=== PATIENT | male | born 1935 | race Caucasian/White ===

== ENCOUNTER 2020-06-06 06:44 | Day surgery (SDC) | payer OTHER, BC ==
[2020-06-02 12:29] LABS: Absolute Lymphocytes (CBC) 1.2 K/uL (0.7-4.9); Basophils % 0.7 % (0-1.3); Hematocrit 41.5 % (39.6-49.0); Lymphocytes % 15.4 % (15.3-44.8); MPV 8.3 fL (7.6-11.3); Potassium 4.6 mmol/L (3.5-5.1); RBC Red Blood Cell Count 4.77 M/uL (4.33-5.43)
[2020-06-02 12:33] LABS: Protime INR 0.96
--- OUTSIDE RECORDS SUMMARY | 2020-06-06 06:51 | XMS REPORT | Continuity of Care Document ---
:1935 Author Organization [employer] [facility] Care Team Providers Name Role Phone [employer] Unavailable Un available Problems Problem Status Onset Classification Date Comments Sourc e Date Reported BODY MASS INDEX Active Condition MH 36.0-36.9, ADULT 014 5 Med ical Group Body mass index 30+ - Resolved Problem Data obesity (finding) 014 8 migrated Me dical from [employer] on 04/22/15. INFECTION, LOCAL Inactive Condition SKIN/SUBCUTANEOUS TISSUE 014 5 Medical NEC Group SPECIAL SCREENING Active Condition MALIGNANT NEOPLASM OF 013 5 Medical PROSTATE Group SCREENING, COLON CANCER Active Condition 013 5 Medical Group PHARYNGITIS Inactive Condition 012 5 Medical Group NEED PROPHYLACTIC Active Condition VACCINATION&INOCULATION 012 5 Medical FLU Group Pharyngitis (disorder) Resolved Problem Da ta migrated from [employer] on 06/10/15. MH 012 8 Data migrated from [employer] on 06/09/15. Medical Group LONG-TERM (CURRENT) USE Active Condition MH OF OTHER MEDICATIONS 012 5 Medical Group Long-term drug therapy Resolved Problem Data (procedure) 012 8 migrated Medical from [employer] [facility] on 04/22/15. DM Active Condition MH 5 Medical Group HTN Active Condition MH 5 Medical Group HYPERLIPIDEMIA Active Condition MH 5 Medical Group DIABETES MELLITUS, TYPE Active Condition II, UNCONTROLLED 5 Med ical Group Benign hypertension Active Problem Data (disorder) 8 migrated Medical from [employer] [facility] on 5/30/15. Chest discomfort Active Problem MH (finding) 8 Medical Group Chronic renal failure Active Problem MH syndrome (disorder) 8 Medical Group Diabetes mellitus Active Problem Data MH (disorder) 8 migrated Medical from [employer] [facility] on 04/22/15. Drug therapy finding Active Problem MH (finding) 8 Medical Group Dyspnea (finding) Active Problem MH 8 Medical Group Hypergammaglobulinemia Active Problem MH (finding) 8 Medical Group Mixed hyperlipidemia Active Problem MH (disorder) 8 Medical Group Proteinuria (finding) Active Problem MH 8 Medical Group Screening status Active Problem MH (finding) 8 Medical Group Type II diabetes Resolved Problem Data MH mellitus uncontrolled 8 migrated Medical (finding) from [employer] on 04/22/15. Medications Medication Details Route Status Patient Ordering Order Source Instructions Provider Date sitagliptin 50 50 mg = 1 Active MH MG Oral Tablet tab, PO, 017 Medical [Januvia] Daily, # 90 Group tab, 1 Refill(s), Pharmacy: [facility] [id number] JANWeibuT 50-500 1 tab bid Active 2 MH MG TABS 013 Medical Group SIMVASTATIN 20 one po q Active 2 MH MG TABS daily 013 Medical Group LOSARTAN one po q Active 2 MH POTASSIUM 50 daily 013 Medical MG TABS Group SIMVASTATIN 20 one po q Active 09/13/2 MH MG TABS daily 013 Medical Group LOSARTAN one po q Active MH POTASSIUM 50 daily 013 Medical MG TABS Group SIMVASTATIN 20 one po q Active 2 MH MG TABS daily 013 Medical Group JANUMET 50-500 1 tab bid Active 2 MH MG TABS 013 Medical Group Allergies, Adverse Reactions, Alerts No Known Medication Allergies Immunizations No Data Provided for This Section Results Order Name Results Value Reference Date Interpretation Comments Brie rce Range Chemistry HGBA1C 5.9 - 5.6 2014 Medical Group Chemistry HGBA1C 5.9 3.0 - 6.0 2014 Medical Group Chemistry CHOLESTEROL 183 120 - 200 2014 Medical Group Chemistry HDL 39 26 - 62 2014 Medical Group Chemistry LDL 79 0 - 130 2014 Medical Group Chemistry HGBA1C 5.9 3.0 - 6.0 2014 Medical Group Chemistry HGBA1C 5.8 3.0 - 6.0 2013 Medical Group Chemistry HGBA1C 5.8 3.0 - 6.0 2013 Medical Group Chemistry SODIUM 139 135 - 143 2013 Medical Group Chemistry SODIUM 139 135 - 143 2013 Medical Group Chemistry POTASSIUM 4.5 3.3 - 5.0 2013 Medical Group Chemistry ALBUMIN 4.0 3.5 - 5.0 2013 Medical Group Chemistry CALCIUM 9.4 8.6 - 9.8 2013 Medical Group Chemistry CREATININE 1.34 0.46 - 1.20 2013 Medical Group Chemistry BUN 23 10 - 22 2013 Medical Group Chemistry ALK PHOS 63 32 - 96 2013 Medical Group Chemistry SGOT (AST) 23 10 - 42 2013 Medical Group Chemistry SGPT (ALT) 23 11 - 43 2013 Medical Group Chemistry CHOLESTEROL 163 120 - 200 2013 Medical Group Chemistry HDL 35 26 - 62 2013 Medical Group Chemistry LDL 0 - 130 mg/dL 2013 Medical Group Chemistry HGBA1C 5.8 3.0 - 6.0 2013 Medical Group Chemistry PSA 0.54 0 - 4.0 2013 Medical Group Chemistry TSH 1.07 0.34 - 5.60 2013 Medical Group Hematology HGB 14.8 12.3 - 17.3 2013 Medical Group Hematology HCT 42.8 36.7 - 50.5 2013 Medical Group Chemistry HGBA1C 6.0 2013 Medical Group Chemistry HGBA1C 6.0 2013 Medical Group Chemistry HGBA1C 5.8 2012 Medical Group Chemistry HGBA1C 5.8 2012 Medical Group Chemistry HGBA1C 5.8 2012 Medical Group Chemistry HGBA1C 5.8 2012 Medical Group Chemistry CREATININE 1.29 06/2012 Medical Group Chemistry TSH 1.55 2012 Medical Group Chemistry CHOLESTEROL 180 2012 Medical Group Chemistry LDL 106 2012 Medical Group Chemistry HDL 33 2012 Medical Group Chemistry TRIGLYCERIDE 205 2012 Medical Group Chemistry PSA 0.40 2012 Medical Group Urinalysis MICROALB URN 30 2012 Medical Group Chemistry HGBA1C 5.6 2012 Medical Group Chemistry HGBA1C 5.6 2012 Medical Group Chemistry CHOLESTEROL 221 2011 Medical Group Chemistry CHOLESTEROL 221 2011 Medical Group Chemistry TRIGLYCERIDE 174 2011 Medical Group Chemistry HDL 37 2011 Medical Group Chemistry LDL 149 2011 Medical Group Chemistry CREATININE 1.16 2011 Medical Group Chemistry CHOLESTEROL 234 2011 Medical Group Chemistry CHOLESTEROL 234 2011 Medical Group Chemistry LDL 161 2011 Medical Group Chemistry HDL 34 2011 Medical Group Chemistry TRIGLYCERIDE 196 2011 Medical Group Urinalysis MICROALB URN 30 2011 Medical Group Chemistry HGBA1C 11.8 2011 Medical Group Chemistry HGBA1C 11.8 2011 Medical Group Chemistry CREATININE 1.25 2011 Medical Group Chemistry TSH 1.26 2011 Medical Group Chemistry CHOLESTEROL 271 2011 Medical Group Urinalysis MICROALB URN 150 2011 Medical Group Chemistry PSA .52 2010 Medical Group Chemistry PSA .52 2010 Medical Group Pathology Reports No Data Provided for This Section Diagnostic Reports Report Value Date Source Chest 2 views DX EXAM: 01/29/2016 [facility] Two view chest. INDICATION: Shortness of breath. Chest discomfort. COMPARISON: Chest x-ray: None. FINDINGS: Support apparatus: None. Cardiac silhouette: Unremarkable. Kennedi: Unremarkable. Lobar consolidation: None. Pleural effusion: None. Pneumothorax: None. Other: None. Bones: Unremarkable. Other: None. IMPRESSION: 1. No acute cardiopulmonary process. Consultation Notes No Data Provided for This Section Discharge Summaries No Data Provided for This Section History and Physicals No Data Provided for This Section Vital Signs Vital Sign Value Date Comments Source BMI Calculated 37 11/05/2017 Medical Gr oup Weight 113.636 11/05/2017 Medical Grou p Systolic (mm Hg) 171 11/05/2017 Medical Group Diastolic (mm Hg) 72 11/05/2017 Medical Group Heart Rate 105 11/05/2017 Medical Grou p Height 175.26 cm 11/05/2017 Medical Grou p Height 68.5 06/01/2015 Medical Grou p Weight 247 06/01/2015 Medical Grou p Temperature Oral (F) 98.2 F 06/01/2015 Medi basilio Group Respitory Rate 16 06/01/2015 Medical Gr oup Heart Rate 80 06/01/2015 Medical Grou p Systolic (mm Hg) 144 06/01/2015 Medical Group Diastolic (mm Hg) 70 06/01/2015 Medical Group Weight 251 02/02/2015 Medical Grou p Respitory Rate 18 02/02/2015 Medical Gr oup Heart Rate 120 02/02/2015 Medical Grou p Systolic (mm Hg) 126 02/02/2015 Medical Group Diastolic (mm Hg) 78 02/02/2015 Medical Group Height 68.5 10/03/2014 Medical Grou p Weight 245 10/03/2014 Medical Grou p Temperature Oral (F) 98.2 F 10/03/2014 Medi basilio Group Respitory Rate 17 10/03/2014 Medical Gr oup Heart Rate 102 10/03/2014 Medical Grou p Systolic (mm Hg) 132 10/03/2014 Medical Group Diastolic (mm Hg) 76 10/03/2014 Medical Group Height 68.5 05/31/2014 Medical Grou p Weight 245 05/31/2014 Medical Grou p Temperature Oral (F) 97.9 F 05/31/2014 Medi basilio Group Respitory Rate 17 05/31/2014 Medical Gr oup Heart Rate 80 05/31/2014 Medical Grou p Systolic (mm Hg) 126 05/31/2014 Medical Group Diastolic (mm Hg) 72 05/31/2014 Medical Group Weight 242.8 05/04/2014 Medical Grou p Temperature Oral (F) 98.9 F 05/04/2014 Medi basilio Group Respitory Rate 18 05/04/2014 Medical Gr oup Heart Rate 88 05/04/2014 Medical Grou p Systolic (mm Hg) 142 05/04/2014 MH [facility] Group Diastolic (mm Hg) 70 05/04/2014 Medical Group Weight 252 01/13/2014 Medical Grou p Temperature Oral (F) 98.4 F 01/13/2014 Medi basilio Group Respitory Rate 18 01/13/2014 Medical Gr oup Heart Rate 88 01/13/2014 Medical Grou p Systolic (mm Hg) 144 01/13/2014 MH [facility] Group Diastolic (mm Hg) 70 01/13/2014 Medical Group Weight 251.2 09/13/2013 Medical Grou p Temperature Oral (F) 97.9 F 09/13/2013 Medi basilio Group Respitory Rate 16 09/13/2013 Medical Gr oup Heart Rate 88 09/13/2013 Medical Grou p Systolic (mm Hg) 136 09/13/2013 Medical Group Diastolic (mm Hg) 80 09/13/2013 Medical Group Weight 248 05/10/2013 Medical Grou p Temperature Oral (F) 97.9 F 05/10/2013 Medi basilio Group Respitory Rate 18 05/10/2013 Medical Gr oup Heart Rate 88 05/10/2013 Medical Grou p Systolic (mm Hg) 132 05/10/2013 Medical Group Diastolic (mm Hg) 80 05/10/2013 Medical Group Weight 249 01/08/2013 Medical Grou p Temperature Oral (F) 97.7 F 01/08/2013 Medi basilio Group Respitory Rate 17 01/08/2013 Medical Gr oup Heart Rate 80 01/08/2013 Medical Grou p Systolic (mm Hg) 122 01/08/2013 Medical Group Diastolic (mm Hg) 70 01/08/2013 Medical Group Weight 246 09/14/2012 Medical Grou p Temperature Oral (F) 98.6 F 09/14/2012 Medi basilio Group Respitory Rate 19 09/14/2012 Medical Gr oup Heart Rate 80 09/14/2012 Medical Grou p Systolic (mm Hg) 114 09/14/2012 Medical Group Diastolic (mm Hg) 72 09/14/2012 Medical Group Height 69.5 06/18/2012 Medical Grou p Weight 2449 06/18/2012 Medical Grou p Temperature Oral (F) 98.4 F 06/18/2012 Medi basilio Group Respitory Rate 19 06/18/2012 Medical Gr oup Heart Rate 80 06/18/2012 Medical Grou p Systolic (mm Hg) 140 06/18/2012 Medical Group Diastolic (mm Hg) 76 06/18/2012 Medical Group Encounters Location Location Encounter Encounter Reason Attending ADM DC Stat us Source Details Type Number For Provider Date Date Visit [facility] Lab Report [id number] [place] 09/26 09/26 [place] [facility] [address] [place], /2013 Xenia Mendez MD [facility] Practice [facility] Office [id number] Patrick 10/03 10/03 [place] [facility] Visit [address], /2013 Xenia Mendez MD [facility] Lab Report [id number] Patrick 01/26 01/26 [place] [facility] [address], /2014 Xenia Menedz MD [facility] Office [id number] [place] 02/02 02/02 [place] [facility] Visit [address], /2014 Xenia Mendez MD [facility] Lab Report [id number] Patrick 05/24 05/24 [place] [facility] [address], /2014 Xenia Mendez MD [facility] Lab Report [id number] [place] 05/24 05/24 [place] [facility] [address], /2014 Xenia Mendez MD [facility] Office [id number] [place] 06/01 06/01 [place] [facility] Visit [address], /2014 Xenia Mendez MD [facility] Outpatient [id number] OMAR 10/02 [facility] /2014 [place] Out[facility] [id number] OMAR 01/28 [facility] [place] Outpatient [id number] CARDIO/PUL 01/28 [facility] [place] [facility] [place] Out[facility] [id number] CARDIO/PUL 01/28 [facility] [place] [facility] [id number] XRAY VISIT 01/28 [facility] /2015 [place] Outpatient [id number] XRAY VISIT 01/28 [facility] /2015 [place] Outpatient [id number] CARDIO/PUL 01/28 [facility] [place] [facility]2015 [facility] Out[facility] [id number] L CHVAO 02/08 [facility] [place] Outpatient [id number] DANNY 02/26 [facility] [place] Outpatient [id number] OMAR 06/03 [facility] [place] Outpatient [id number] OMAR 09/26 [facility] [place] Outpatient [id number] OMAR 01/23 [facility] [place] Outpatient [id number] OMAR 09/24 [facility] [place] Outpatient [id number] [facility] 10/01 [facility] Outpatient [id number] [facility] 11/05 [facility] Outpatient [id number] [facility] 11/05 11/06 Nephrology [facility] Me dical [place] [facility] Outpatient [id number] OMAR 02/18 [facility] [id number] Omar 02/18 02/18 Medicine Pre-Reg [place] [facility] [place] [facility] Outpatient [id number] [facility] 03/11 [facility] Ambulatory [id number] [facility] 03/11 03/11 Nephrology Pre-Reg [facility] [place] [facility] Procedures Procedure Code Date Perfomer Comments Source smoking/tobacco 14 05/04/2014 no Medica l cessation, patient Group education and counseling diabetic eye exam 12338.1 01/07/2013 permormed Medi basilio Group diabetic foot check [id number] 06/18/2012 yes [facility] dical Group colonoscopy 98864 01/17/2012 [facility] Carpal tunnel [id number] left hand Medical release<sup>1</sup> Group Colonoscopy<sup>2</ [id number] Multiple Me dical sup> Group Partial repair of [id number] Right [facility] basilio rotator Group cuff<sup>3</sup> Procedure on back [id number] Medi basilio Group Tonsillectomy [id number] Medical Group Total knee [id number] Bilateral Medical arthroplasty<sup>4< Group /sup> Assessment and Plan No Data Provided for This Section Plan of Care No Data Provided for This Section Social History Social History Date Source Social History TypeResponse 10/02/2015 [facility] [place] Substance Abuse Use: None. Employment/School Status: Retired. 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 Highest education level: High school. Alcohol Never Smoking Status Never smoker; Exposure to Tobacco Smoke None; Cigarette Smoking Last 365 Days No; Reg Smoking Cessation Counseling No entered on: 11/05/17 Family History No Data Provided for This Section Advance Directives No Data Provided for This Section Functional Status No Data Provided for This Section
--- OUTSIDE RECORDS SUMMARY | 2020-06-06 06:55 | XMS REPORT | Summary of Care ---
:1935 Author Organization [facility] Address [address] [place] [address] Care Team Providers Name Role Phone Pcp, Does Not Have A Primary Care Provider Reason for Referral Radiology Services (Routine) Status Reason Specialty Diagnoses / Referred By Referred To Procedures Contact Contact New Request Diagnostic Diagnoses Left elbow pain Juan Antonio Hutchins Radiology Procedures XR ELBOW <3 VW JIAN James MD [address] [place] [address] [place] [address] Reason for Visit Reason Comments Orders Left Elbow Injury Encounter Details Date Type Department Care Team Description 05/03/2020 Telephone [facility] Orthopaedic Juan Antonio Hutchins (Left Elbow Surgery- Horacio James MD Injury ) [address] [facility], [address] [facility] [address] [place] [address] [place], [place] [phone] Allergies No Known Allergiesdocumented as of this encounter (statuses as of 05/03/2020) Medications Medication Sig Dispensed Refills Start Date End Date Status JANUMET 50-500 mg per 0 10/13/2015 Active tablet simvastatin (ZOCOR) 20 0 09/18/2015 Active mg tablet methylPREDNISolone Take 21 Tabs by 1 Each 0 11/10/2015 Active (MEDROL, YUE,) 4 mg mouth tablets SEE-INSTRUCTIONS . follow package directions cyclobenzaprine Take 1 Tab by 30 Tab 0 11/10/2015 Active (FLEXERIL) 10 mg tablet mouth 3 (three) times daily. methylPREDNISolone Take by mouth 21 Each 0 06/30/2019 Active (MEDROL, YUE,) 4 mg SEE-INSTRUCTIONS tabletsIndications: . follow package Right hip pain directions documented as of this encounter (statuses as of 05/03/2020) Active Problems Not on filedocumented as of this encounter (statuses as of 05/03/2020) Social History Tobacco Use Types Packs/Day Years Used Date Never Smoker Alcohol Use Drinks/Week oz/Week Comments Not Asked 0 Standard drinks or equivalent 0.0 Sex Assigned at Date Recorded Not on file Job Start Date Occupation Industry Not on file Not on file Not on file Travel History Travel Start Travel End No recent travel history available. documented as of this encounter Last Filed Vital Signs Not on filedocumented in this encounter Plan of Treatment Date Type Specialty Care Team Description 05/03/2020 Office Visit Orthopedic Surgery Isael Hutchins MD [address] [place], [place] [phone] Name Type Priority Associated Diagnoses Order S chedule XR ELBOW <3 VW LEFT IMAGING Routine Left elbow pain Expec seymour: 05/03/2020, Expires: 2020 Health Maintenance Due Date Last Done Comments DTaP,Tdap,and Td Vaccines (1 - Tdap) 1946 Zoster Recombinant Vaccine (SHINGRIX) (1 of 2) 1985 Medicare Wellness Visit 2000 PNEUMOCOCCAL VACCINES 65+ (1 of 2 - PCV13) 2000 Depression Screening 06/30/2020 06/30/2019 INFLUENZA VACCINE (Season Ended) 2020 documented as of this encounter Results Not on filedocumented in this encounter Visit Diagnoses Diagnosis Left elbow pain - Primary Pain in joint, upper arm documented in this encounter Insurance Payer Benefit Plan / Subscriber ID Effective Phone Address T ype Group Dates MEDICARE MEDICARE PART A xxxxxxxxxxx 2000-Pres [phone] [address] Medicare & B ent [id number] [place] [id number] BCBS OF BCBS [id number] 2014-Pres [phone] [facility] TRADITIONAL ent [phone] [place] [address] documented as of this encounter
--- OUTSIDE RECORDS SUMMARY | 2020-06-06 06:55 | XMS REPORT | Continuity of Care Document ---
:1935 Author Organization [facility] t Address [address] [place] [address] Care Team Providers Name Role Phone Cuong JEFFREY L Attending Clinician Ruddy Montiel Attending Clinician Kris Shaffer Attending Clinician Problems Condition Condition Condition Status Onset Resolution Last Treating Co mments Source Name Details Category Date Date Treatment Clinician Date BODY MASS Condition Active 2013-112015-06-01 Memoria INDEX 1-10 08:14:40 l 36.0-36.9, BODY 00:00: Sonido n ADULT MASS INDEX 00 36.0-36.9, ADULT Active 10/03/2014 [facility] SPECIAL Condition Active 2015-06-01 Me moria SCREENING 01-08 08:14:40 l MALIGNANT SPECIAL 00:00: Herm sherry NEOPLASM SCREENING 00 OF MALIGNANT PROSTATE NEOPLASM OF PROSTATE Active 01/08/2013 [facility] SCREENING, Condition Active 2015-06-01 Memoria COLON 01-08 08:14:40 l CANCER 00:00: Zacarias SCREENING, 00 COLON CANCER Active 01/08/2013 Condition [facility] NEED Condition Active 2011-112015-06-01 Mem oria PROPHYLACT 0- 08:14:40 l IC NEED 00:00: Shelby VACCINATIO PROPHYLACT 00 N&INOCULAT IC ION FLU VACCINATIO N&INOCULAT ION FLU Active 09/14/2012 Condition [facility] LONG-TERM Condition Active 2015-06-01 Memoria (CURRENT) 06-18 08:14:40 l USE OF 00:00: Zacarias OTHER LONG-TERM 00 MEDICATION (CURRENT) S USE OF OTHER MEDICATION S Active 06/18/2012 [facility] Type II Problem Resolve 2018-05-27 Mem oria diabetes d 11:07:26 l mellitus Type II Xiomy nn uncontroll diabetes ed mellitus (finding) uncontroll ed (finding) Resolved Problem 05/27/2018 Data migrated from [facility] on 04/22/15. Medical Group DM Condition Active 2015-06-01 Mem oria 08:14:40 l DM Zacarias Active Condition 06/01/2015 [facility] Group HTN Condition Active 2015-06-01 Mem oria 08:14:40 l HTN Z[facility]arias Active Condition 06/01/2015 Medical Group HYPERLIPID Condition Active 2015-06-01 Memoria EMIA 08:14:40 l [place] HYPERLIPID EMIA Active Condition 06/01/2015 [facility] Group DIABETES Condition Active 2015-06-01 M emoria MELLITUS, 08:14:40 l TYPE II, DIABETES Herm sherry UNCONTROLL MELLITUS, ED TYPE II, UNCONTROLL ED Active Condition 06/01/2015 [facility] Group Benign Problem Active 2018-05-27 Memor ia hypertensi 11:07:26 l on Benign Shelby (disorder) hypertensi on (disorder) Active Problem 05/27/2018 Data migrated from [facility] on 04/22/15. Medical Group Chest Problem Active 2018-05-27 Memor ia discomfort 11:07:26 l (finding) Chest Sonido n discomfort (finding) Active Problem 05/27/2018 [facility] Group Chronic Problem Active 2018-05-27 Solomon diya renal 11:07:26 l failure Chronic Sonido n syndrome renal (disorder) failure syndrome (disorder) Active Problem 05/27/2018 [facility] Group Diabetes Problem Active 2018-05-27 Mem oria mellitus 11:07:26 l (disorder) Diabetes He rmann mellitus (disorder) Active Problem 05/27/2018 Data migrated from [facility] on 04/22/15. 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 11:07:26 l ia Shelby (finding) Hypergamma globulinem ia (finding) Active Problem 05/27/2018 [facility] Group Mixed Problem Active 2018-05-27 Memor ia hyperlipid 11:07:26 l emia Mixed Shelby (disorder) hyperlipid emia (disorder) Active Problem 05/27/2018 Medical Group 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 11:07:26 l (finding) Zacarias Proteinuri a (finding) Active Problem 05/27/2018 [facility] Screening Problem Active 2018-05-27 Me moria status 11:07:26 l (finding) Zacarias Screening status (finding) Active Problem 05/27/2018 [facility] History of Past Illness Condition Condition Condition Status Onset Resolution Last Treating Co mments Source Name Details Category Date Date Treatment Clinician Date Body mass Problem Resolve 2013-112018-05-27 2018-05-27 Memoria index 30+ d 1- 11:07:26 11:07:26 l - obesity Body 00:00: Zacarias (finding) mass index 00 30+ - obesity (finding) Resolved 10/03/2014 Problem 05/27/2018 Data migrated from [facility] on 04/22/15. [facility] Group Pharyngiti Problem Resolve 2011-112018-05-27 2018-05-27 Memoria s d 0- 11:07:26 11:07:26 l (disorder) 00:00: Sonido n Pharyngiti 00 s (disorder) Resolved 09/14/2012 Problem 05/27/2018 Data migrated from [employer] on 06/10/15.Da ta migrated from [employer] on 06/09/15. [facility] Group Long-term Problem Resolve 2018-05-27 2018-05-27 Memoria drug d 06-18 11:07:26 11:07:26 l therapy 00:00: Zacarias (procedure Long-term 00 ) drug therapy (procedure ) Resolved 06/18/2012 Problem 05/27/2018 Data migrated from [facility] on 04/22/15. [facility] Group INFECTION, Condition Inactiv 2014-0 2015-06-01 2015-06-01 Memoria LOCAL e 6-11 08:14:40 08:14:40 l SKIN/SUBCU 00:00: Sonido arroyo TANEOUS INFECTION, 00 TISSUE NEC LOCAL SKIN/SUBCU TANEOUS TISSUE NEC Inactive 05/04/2014 Condition [facility] PHARYNGITI Condition Inactiv 2011-2015-06-01 2015-06-01 Memoria S e 0-22 08:14:40 08:14:40 l 00:00: [place] PHARYNGITI 00 S Inactive 09/14/2012 Condition [facility] Allergies, Adverse Reactions, Alerts This patient has no known allergies or adverse reactions. Social History Social Habit Start Date Stop Date Quantity Comments Source Social History 2015-10-02 2015-10-[address] [facility] Nancy bensonsherry 15:10:40 15:10:40 Medications Ordered Filled Start Stop Current Ordering Indication Dosage Frequency Signature Comments Components Source Medication Medication Date Date Medication? Clinician (SIG) Name Name sitagliptin 2016-11 Yes 50 mg = 1 M emoria 50 MG Oral 2-13 tab, PO, l Tablet 21:04: Daily, # Zacarias [Novuvia] 00 90 tab, 1 Refill(s), Pharmacy: [facility] [id number] 2012-11 Yes 1 tab bid Memor ia 50-500 MG 0-21 l TABS 00:00: SIMVASTATIN 2012-11 Yes one po q Me moria 20 MG TABS 0-21 daily l 00:00: LOSARTAN 2012-11 Yes one po q Memor ia POTASSIUM 0-21 daily l 50 MG TABS 00:00: SIMVASTATIN 2012-11 Yes one po q Me moria 20 MG TABS 0-21 daily l 00:00: LOSARTAN 2012-11 Yes one po q Memor ia POTASSIUM 0-21 daily l 50 MG TABS 00:00: SIMVASTATIN 2012-11 Yes one po q Me moria 20 MG TABS 0-21 daily l 00:00: NovUMET 2012-11 Yes 1 tab bid Memor ia 50-500 MG 0-21 l TABS 00:00: Vital Signs Vital Name Observation Time Observation Value Comments Source BMI Calculated 2017-11-05 20:29:00 Memori al Zacarias Weight 2017-11-05 20:29:00 [facility] Systolic (mm Hg) 2017-11-05 20:29:00 Solomon rial [place] Diastolic (mm Hg) 2017-11-05 20:29:00 Mem orial [place] Heart Rate 2017-11-05 20:29:00 [facility] [place] Height 2017-11-05 20:29:00 175.26 cm [facility] Height 2015-06-01 13:14:40 [facility] [place] Weight 2015-06-01 13:14:40 [facility] Temperature Oral (F) 2015-06-01 13:14:40 98.2 F [facility] Respitory Rate 2015-06-01 13:14:40 Memori al [place] Heart Rate 2015-06-01 13:14:40 [facility] [place] Systolic (mm Hg) 2015-06-01 13:14:40 Solomon rial Zacarias Diastolic (mm Hg) 2015-06-01 13:14:40 Mem orial [place] Weight 2015-02-02 13:21:21 [facility] Respitory Rate 2015-02-02 13:21:21 Memori al [facility] Heart Rate 2015-02-02 13:21:21 [facility] [place] Systolic (mm Hg) 2015-02-02 13:21:21 Solomon rial Zacarias Diastolic (mm Hg) 2015-02-02 13:21:21 Mem orial [place] Height 2014-10-03 15:01:10 [facility] Weight 2014-10-03 15:01:10 [facility] [place] Temperature Oral (F) 2014-10-03 15:01:10 98.2 F [facility] [place] Respitory Rate 2014-10-03 15:01:10 Memori al [facility] Heart Rate 2014-10-03 15:01:10 [facility] Systolic (mm Hg) 2014-10-03 15:01:10 Solomon rial [place] Diastolic (mm Hg) 2014-10-03 15:01:10 Mem orial [place] Height 2014-05-31 13:57:51 [facility] Weight 2014-05-31 13:57:51 [facility] Temperature Oral (F) 2014-05-31 13:57:51 97.9 F [facility] [place] Respitory Rate 2014-05-31 13:57:51 Memori al [place] Heart Rate 2014-05-31 13:57:51 [facility] Systolic (mm Hg) 2014-05-31 13:57:51 Solomon rial Zacarias Diastolic (mm Hg) 2014-05-31 13:57:51 Mem orial [place] Weight 2014-05-04 20:37:51 [facility] [place] Temperature Oral (F) 2014-05-04 20:37:51 98.9 F [facility] Respitory Rate 2014-05-04 20:37:51 Memori al [place] Heart Rate 2014-05-04 20:37:51 [facility] Systolic (mm Hg) 2014-05-04 20:37:51 Solomon rial Zacarias Diastolic (mm Hg) 2014-05-04 20:37:51 Mem orial [facility] Weight 2014-01-13 14:47:10 [facility] Temperature Oral (F) 2014-01-13 14:47:10 98.4 F [facility] Respitory Rate 2014-01-13 14:47:10 Memori al [facility] Heart Rate 2014-01-13 14:47:10 [facility] Systolic (mm Hg) 2014-01-13 14:47:10 Solomon rial [place] Diastolic (mm Hg) 2014-01-13 14:47:10 Mem orial [facility] Weight 2013-09-13 13:46:50 [facility] [place] Temperature Oral (F) 2013-09-13 13:46:50 97.9 F [facility] [place] Respitory Rate 2013-09-13 13:46:50 Memori al [place] Heart Rate 2013-09-13 13:46:50 [facility]ac[facility] Systolic (mm Hg) 2013-09-13 13:46:50 Solomon rial [place] Diastolic (mm Hg) 2013-09-13 13:46:50 Mem orial [place] Weight 2013-05-10 14:35:51 [facility] Temperature Oral (F) 2013-05-10 14:35:51 97.9 F [facility] Respitory Rate 2013-05-10 14:35:51 Memori al Zac[facility] Heart Rate 2013-05-10 14:35:51 [facility] [place] Systolic (mm Hg) 2013-05-10 14:35:51 Solomon rial Zacarias Diastolic (mm Hg) 2013-05-10 14:35:51 Mem orial [facility] Weight 2013-01-08 15:48:17 [facility] [place] Temperature Oral (F) 2013-01-08 15:48:17 97.7 F [facility] [place] Respitory Rate 2013-01-08 15:48:17 Memori al [place] Heart Rate 2013-01-08 15:48:17 [facility] [place] Systolic (mm Hg) 2013-01-08 15:48:17 Solomon rial Zacarias Diastolic (mm Hg) 2013-01-08 15:48:17 Mem orial [place] Weight 2012-09-14 18:34:40 [facility] Temperature Oral (F) 2012-09-14 18:34:40 98.6 F [facility] [place] Respitory Rate 2012-09-14 18:34:40 Memori al [facility] Heart Rate 2012-09-14 18:34:40 [facility] Zac[facility] Systolic (mm Hg) 2012-09-14 18:34:40 Solomon rial [place] Diastolic (mm Hg) 2012-09-14 18:34:40 Mem orial [place] Height 2012-06-18 15:09:22 [facility] Weight 2012-06-18 15:09:22 [facility] Zacarias Temperature Oral (F) 2012-06-18 15:09:22 98.4 F [facility] [place] Respitory Rate 2012-06-18 15:09:22 Memori al [place] Heart Rate 2012-06-18 15:09:22 [facility] Zacarias Systolic (mm Hg) 2012-06-18 15:09:22 Solomon rial Zacarias Diastolic (mm Hg) 2012-06-18 15:09:22 Mem orial Zacarias Procedures Procedure Date / Time Performed Performing Clinician Enrrique hayes smoking/tobacco cessation, 2014-05-04 20:37:51 Vi Adames patient education and counseling diabetic eye exam 2013-01-07 16:28:34 Von Cruz ermsherry diabetic foot check 2012-06-18 15:09:[address] [facility] Shelby colonoscopy 2012-01-17 20:27:10 Von garza Carpal tunnel [facility] Zacarias release<sup>1</sup> Colonoscopy<sup>2</sup> [facility] Zacarias Partial repair of rotator Julio domínguez Zacarias cuff<sup>3</sup> Procedure on back Von Castañedaa nn Tonsillectomy [facility] Zacarias Total knee [facility] Shelby arthroplasty<sup>4</sup> Encounters Start End Encounter Admission Attending Care Care Encounter Source Date/Time Date/Time Type Type Clinicians Facility Department ID 2020-05-03 2020-05-10 Office HARRY Hutchins [id number] 12:42:08 08:28:41 Visit Juan Antonio James [facility] [id number] Surgical [id number] [facility] [id number] 198 [place] 2018-03-11 2018-03-11 [id number] 14:30:00 14:30:00 Anderson 16 Sofie Fox 2018-02-18 2018-02-18 Outpatient Edmund [facility] [id number] 08:30:00 08:30:00 Omar P 13 2018-02-18 2018-02-18 Outpatient Edmund [facility] [id number] 08:30:00 08:30:00 Omar P 13 2017-11-05 2017-11-05 [facility] [id number] 14:30:00 23:59:59 Anderson, 15 Sofie Fox Results Test Description Test Time Test Comments Results Result Comments Source Chemistry 2015-05-24 5.9 Memorial Xiomy nn 13:29:00 Chemistry 2015-01-26 5.9 Memorial Xiomy nn 14:14:00 Chemistry 2015-01-26 183 Memorial Xiomy nn 14:14:00 Chemistry 2015-01-26 39 Memorial Xiomy nn 14:14:00 Chemistry 2015-01-26 79 Memorial Xiomy nn 14:14:00 Chemistry 2015-01-26 5.9 Memorial Xiomy nn 14:14:00 Chemistry 2014-09-26 5.8 Memorial Xiomy nn 14:39:00 Chemistry 2014-09-26 5.8 Memorial Xiomy nn 14:39:00 Chemistry 2014-05-24 139 Memorial Xiomy nn 15:51:00 Chemistry 2014-05-24 139 Memorial Xiomy nn 15:51:00 Chemistry 2014-05-24 4.5 Memorial Xiomy nn 15:51:00 Chemistry 2014-05-24 4.0 Memorial Xiomy nn 15:51:00 Chemistry 2014-05-24 9.4 Memorial Xiomy nn 15:51:00 Chemistry 2014-05-24 1.34 Memorial Xiomy nn 15:51:00 Chemistry 2014-05-24 23 Memorial Xiomy nn 15:51:00 Chemistry 2014-05-24 63 Memorial Xiomy nn 15:51:00 Chemistry 2014-05-24 23 Memorial Xiomy nn 15:51:00 Chemistry 2014-05-24 23 Memorial Xiomy nn 15:51:00 Chemistry 2014-05-24 163 Memorial Xiomy nn 15:51:00 Chemistry 2014-05-24 35 Memorial Xiomy nn 15:51:00 Chemistry 2014-05-24 mg/dL Memorial Xiomy nn 15:51:00 Chemistry 2014-05-24 5.8 Memorial Xiomy nn 15:51:00 Chemistry 2014-05-24 0.54 Memorial Xiomy nn 15:51:00 Chemistry 2014-05-24 1.07 [facility] Xiomy nn 15:51:00 Hematology 2014-05-24 14.8 Memorial Xiomy nn 15:51:00 Hematology 2014-05-24 42.8 Memorial Xiomy nn 15:51:00 Chemistry 2014-01-06 6.0 Memorial Xiomy nn 20:42:31 Chemistry 2014-01-06 6.0 Memorial Xiomy nn 20:42:31 Chemistry 2013-09-01 5.8 Memorial Xiomy nn 22:49:38 Chemistry 2013-09-01 5.8 Memorial Xiomy nn 22:49:38 Chemistry 2013-05-03 5.8 Memorial Xiomy nn 22:27:25 Chemistry 2013-05-03 5.8 Memorial Xiomy nn 22:27:25 Chemistry 2013-05-03 1.29 Memorial Xiomy nn 22:27:25 Chemistry 2013-05-03 1.55 Memorial Xiomy nn 22:27:25 Chemistry 2013-05-03 180 Memorial Xiomy nn 22:27:25 Chemistry 2013-05-03 106 [facility] Xiomy nn 22:27:25 Chemistry 2013-05-03 33 Memorial Xiomy nn 22:27:25 Chemistry 2013-05-03 205 Memorial Xiomy nn 22:27:25 Chemistry 2013-05-03 0.40 Memorial Xiomy nn 22:27:25 Urinalysis 2013-05-03 30 Memorial Xiomy nn 22:23:41 Chemistry 2013-01-08 5.6 [facility] Xiomy nn 19:03:30 Chemistry 2013-01-08 5.6 Memorial Xiomy nn 19:03:30 Chemistry 2012-06-19 221 [facility] Xiomy nn 23:52:03 Chemistry 2012-06-19 221 [facility] Xiomy nn 23:52:03 Chemistry 2012-06-19 174 [facility] Xiomy nn 23:52:03 Chemistry 2012-06-19 37 Memorial Xiomy nn 23:52:03 Chemistry 2012-06-19 149 [facility] Xiomy nn 23:52:03 Chemistry 2012-06-19 1.16 Memorial Xiomy nn 23:52:03 Chemistry 2012-02-21 234 Memorial Xiomy nn 15:09:22 Chemistry 2012-02-21 234 Memorial Xiomy nn 15:09:22 Chemistry 2012-02-21 161 [facility] Xiomy nn 15:09:22 Chemistry 2012-02-21 34 Memorial Xiomy nn 15:09:22 Chemistry 2012-02-21 196 [facility] Xiomy nn 15:09:22 Urinalysis 2012-02-21 30 Memorial Xiomy nn 15:09:22 Chemistry 2012-01-08 11.8 Memorial Xiomy nn 16:09:22 Chemistry 2012-01-08 11.8 Memorial Xiomy nn 16:09:22 Chemistry 2012-01-08 1.25 Memorial Xiomy nn 16:09:22 Chemistry 2012-01-08 1.26 Memorial Xiomy nn 16:09:22 Chemistry 2012-01-08 271 [facility] Xiomy nn 16:09:22 Urinalysis 2012-01-08 150 [facility] Xiomy nn 16:09:22 Chemistry 2011-07-04 .52 Memorial Xiomy nn 19:27:10 Chemistry 2011-07-04 .52 Memorial Xiomy nn 19:27:10
[2020-06-06] MEDS ORDERED: HEPA 1000U/500MLS 1,000 UNIT/500 ML BAG IV ONE (06:56)
[2020-06-06] MEDS ORDERED: LIDOCAINE 1% MPF 30 ML VIAL ONE (06:56)
--- OUTSIDE RECORDS SUMMARY | 2020-06-06 06:56 | XMS REPORT | Summary of Care ---
:1935 Author Organization [facility] - Health Address [address] [place] [address] Care Team Providers Name Role Phone Pcp, Does Not Have A Primary Care Provider Encounter Details Date Type Department Care Team Description 05/03/2020 Orders Only [facility] Doctor Unassigned, No [address] [facility] [place] [address] [address] [place] [address] Allergies No Known Allergiesdocumented as of this [...] Date Type Specialty Care Team Description 05/03/2020 Appointment Radiology Juan Antonio Hutchins MD [address] [id number] 05/03/2020 Office Visit Orthopedic Surgery Isael Hutchins MD [address] [phone] [phone] Health Maintenance Due Date Last Done Comments DTaP,Tdap,and Td Vaccines (1 - Tdap) 1946 Zoster Recombinant Vaccine (SHINGRIX) (1 of 2) 1985 Medicare Wellness Visit 2000 PNEUMOCOCCAL VACCINES 65+ (1 of 2 - PCV13) 2000 Depression Screening 06/30/2020 06/30/2019 INFLUENZA VACCINE (Season Ended) 2020 documented as of this encounter Procedures Procedure Name Priority Date/Time Associated Diagnosis Comme nts ASSIGNMENT OF BENEFITS Routine 05/03/2020 12:26 PM CDT documented in this encounter Results Not on filedocumented in this encounter Insurance Payer Benefit Plan / Subscriber ID Effective Phone Address T ype Group Dates MEDICARE MEDICARE PART A xxxxxxxxxxx 2000-Pres [phone] [address] Medicare & B [place] [id number] [place] [id number] BCBS OF BCBS [id number] 2014-Pres [phone] O [facility] TRADITIONAL ent [phone] [place] [address] documented as of this encounter
--- OUTSIDE RECORDS SUMMARY | 2020-06-06 06:56 | XMS REPORT | Summary of Care ---
:1935 Author Organization [facility] Address [address] [place] [address] Care Team Providers Name Role Phone Pcp, Does Not Have A Primary Care Provider Reason for Visit Reason Comments New Patient Elbow Pain left x 6 days 03/03 Encounter Details Date Type Department Care Team Description 05/03/2020 Office Visit [facility] Orthopaedic Juan Antonio Hutchins I nfected abrasion of Surgery- Horacio James MD left elbow, initial [address], [address] encounter (Primary Dx) [address] [place] [address] [address] [place], [place] [phone] Allergies No Known Allergiesdocumented as of this [...] . follow package Right hip pain directions clindamycin 150 mg Take 2 capsules 60 capsule 0 05/03/2020 Active capsuleIndications: by mouth 3 0 Infected abrasion of (three) times left elbow, initial daily for 10 encounter days. documented as of this encounter (statuses as [...] Travel End No recent travel history available. COVID-19 Exposure Response Date Recorded In the last month, have you been in contact with No / Unsure 05/03/2020 1:07 PM CDT someone who was confirmed or suspected to have Coronavirus / COVID-19? documented as of this encounter Last Filed Vital Signs Vital Sign Reading Time Taken Comments Blood Pressure 129/78 05/03/2020 1:10 PM CDT Pulse 103 05/03/2020 1:10 PM CDT Temperature 37.2 C (98.9 F) 05/03/2020 1:10 PM CDT Respiratory Rate 18 05/03/2020 1:10 PM CDT Oxygen Saturation - - Inhaled Oxygen Concentration - - Weight 107.5 kg (237 lb) 05/03/2020 1:10 PM CDT Height 180.3 cm (5' 11") 05/03/2020 1:10 PM CDT Body Mass Index 33.05 05/03/2020 1:10 PM CDT documented in this encounter Progress Notes Juan Antonio Hutchins MD - 05/03/2020 1:00 PM CDT Cc: Chief Complaint Patient presents with New Patient Elbow Pain left x 6 days 03/03 Dwayne Suárez is a 84 year old male. HPI Allergies Dwayne has No Known Allergies. Medications Outpatient Medications Prior to Visit Medication Sig Dispense Refill methylPREDNISolone (MEDROL, YUE,) 4 mg tablets Take by mouth SEE- INSTRUCTIONS. follow package directions 21 Each 0 cyclobenzaprine (FLEXERIL) 10 mg tablet Take 1 Tab by mouth 3 (three) times daily. 30 Tab 0 JANUMET 50-500 mg per tablet methylPREDNISolone (MEDROL, YUE,) 4 mg tablets Take 21 Tabs by mouth SEE- INSTRUCTIONS. follow package directions 1 Each 0 simvastatin (ZOCOR) 20 mg tablet No facility-administered medications prior to visit. Histories Past Medical History: Diagnosis Date Diabetes mellitus Hyperlipidemia Hypertension Past Surgical History: Procedure Laterality Date JOINT SURGERY Lt, & Rt. TKR, Rt RCR, OPEN CARPAL TUNNEL RELEASE Right hand SPINE SURGERY Social History Socioeconomic History Marital status: Spouse name: Not on file Number of children: Not on file Years of education: Not on file Highest education level: Not on file Occupational History Not on file Social Needs Financial resource strain: Not on file Food insecurity: Worry: Not on file Inability: Not on file Transportation needs: Medical: Not on file Non-medical: Not on file Tobacco Use Smoking status: Never Smoker Substance and Sexual Activity Alcohol use: Not on file Drug use: Not on file Sexual activity: Not on file Lifestyle Physical activity: Days per week: Not on file Minutes per session: Not on file Stress: Not on file Relationships Social connections: Talks on phone: Not on file Gets together: Not on file Attends rastafari service: Not on file Active member of club or organization: Not on file Attends meetings of clubs or organizations: Not on file Relationship status: Not on file Intimate partner violence: Fear of current or ex partner: Not on file Emotionally abused: Not on file Physically abused: Not on file Forced sexual activity: Not on file Other Topics Concern Not on file Social History Narrative Not on file Family History Problem Relation Age of Onset Diabetes Mother Cancer Father Review of Systems Constitutional: Negative. HENT: Negative. Eyes: Negative. Respiratory: Negative. Breasts: Negative. Cardiovascular: Negative. Gastrointestinal: Negative. Genitourinary: Negative. Musculoskeletal: Negative. Skin: Negative. Neurological: Negative. Psychiatric/Behavioral: Negative. Endocrine: Endocrine negative Vital Signs There were no vitals taken for this visit. Physical Exam Assessment/Plan This visit documented in this encounter Plan of Treatment Health Maintenance Due Date Last Done Comments DTaP,Tdap,and Td Vaccines (1 - Tdap) 1946 Zoster Recombinant Vaccine (SHINGRIX) (1 of 2) 1985 Medicare Wellness Visit 2000 PNEUMOCOCCAL VACCINES 65+ (1 of 2 - PCV13) 2000 INFLUENZA VACCINE (Season Ended) 2020 Depression Screening 05/03/2021 05/03/2020 documented as of this encounter Results Not on filedocumented in this encounter Visit Diagnoses Diagnosis Infected abrasion of left elbow, initial encounter - Primary documented in this encounter Insurance Payer Benefit Plan / Subscriber ID Effective Phone Address T ype Group Dates MEDICARE MEDICARE PART A xxxxxxxxxxx 2000-Pres [phone] [address] X Medicare & B ent [id number] [place] [id number] BCBS [facility] [id number] 2014-Pres [phone] [address] [facility] ent [phone] [place] [address] documented as of this encounter
--- OUTSIDE RECORDS SUMMARY | 2020-06-06 06:57 | XMS REPORT | Summary of Care ---
:1935 Author Organization [facility] Address [address] [place] [address] Care Team Providers Name Role Phone Pcp, Does Not Have A Primary Care Provider Reason for Visit Reason Comments New Patient Elbow Pain left x 6 days 03/03 Encounter Details Date Type Department Care Team Description 05/03/2020 Office Visit [facility] Orthopaedic Juan Antonio Hutchins I nfected abrasion of Surgery- Horacio James MD left elbow, initial [address], [address] encounter (Primary Dx) [address] [place] [address] [address] [place], [place] [phone] [address] [phone] Allergies No Known Allergiesdocumented as of this [...] file Gets together: Not on file Attends sabianism service: Not on file Active member of [...] NICKY X Medicare & B ent [id number] [place] [phone] BCBS [facility] [id number] 2014-Pres [phone] [address] [facility] ent [phone] [place] [address] documented as of this encounter
--- OUTSIDE RECORDS SUMMARY | 2020-06-06 06:57 | XMS REPORT | Summary of Care ---
:1935 Author Organization [facility] Address [address] [place] [address] Care Team Providers Name Role Phone Pcp, Does Not Have A Primary Care Provider Reason for Referral Radiology Services (Routine) Status Reason Specialty Diagnoses / Referred By Referred To Procedures Contact Contact Closed Diagnostic Diagnoses Left elbow pain Left elbow pain Juan Antonio Hutchins Radiology Procedures XR ELBOW <3 VW LEFT XR ELBOW <3 VW LEFT L, [address] [place] [address] Reason for Visit Radiology Services (Routine) Status Reason Specialty Diagnoses / Referred By Referred To Procedures Contact Contact Closed Diagnostic Diagnoses Left elbow pain Left elbow pain Juan Antonio Hutchins Radiology Procedures XR ELBOW <3 VW LEFT XR ELBOW <3 VW LEFT L, [address] [place] [address] Encounter Details Date Type Department Care Team Description 05/03/2020 Hospital Encounter [facility] Kimo Hutchins, Sharron Wu Radiology [address] [place] [address] Dr alex [address] [place] [address] [address] [phone] [place] [address] Allergies No Known Allergiesdocumented as of this encounter (statuses as of 05/04/2020) Medications Medication Sig Dispensed Refills Start Date [...] as of this encounter (statuses as of 05/04/2020) Active Problems Not on filedocumented as of this encounter (statuses as of 05/04/2020) Social History Tobacco Use Types Packs/Day Years [...] filedocumented in this encounter Plan of Treatment Health Maintenance Due Date Last Done Comments DTaP,Tdap,and Td Vaccines (1 - Tdap) 1946 Zoster Recombinant Vaccine (SHINGRIX) (1 of 2) 1985 Medicare Wellness Visit 2000 PNEUMOCOCCAL VACCINES 65+ (1 of 2 - PCV13) 2000 INFLUENZA VACCINE (Season Ended) 2020 Depression Screening 05/03/2021 05/03/2020 documented as of this encounter Procedures Procedure Name Priority Date/Time Associated Diagnosis Comme nts XR ELBOW <3 VW LEFT Routine 05/03/2020 12:38 PM Left elbow cynthia n Results for this CDT procedure are i n the results section. documented in this encounter Results XR ELBOW <3 VW LEFT (05/03/2020 12:38 PM CDT) Specimen Impressions Performed At PACS/VR/DOSE Marked soft tissue swelling with olecran on bursitis. Osteoarthrosis. Questionable joint effusion. If this patient has histo ry of a fall, radial head/neck fracture cannot be reliably ex cluded. Narrative Performed At EXAM: PACS/VR/DOSE XR ELBOW <3 VW LEFT HISTORY: LT Elbow Injury COMPARISON: None FINDINGS: Imaging of the elbow demonstrates epicondylar enthesop hyte formation with a remote avulsion versus intracapsular oss eous body over the lateral joint line. Marked medial and posterior subcutaneous fat str anding is seen with fullness at the olecranon bursa. Osteoph ytosis is seen about the elbow joint. Radial tuberosity enthesophyte fo rmation is present. Questionable posterior fat pad displacement is seen. Procedure Note [facility], Radiant Results Inft User - 2019 12:51 PM CDT EXAM: XR ELBOW <3 VW LEFT HISTORY: LT Elbow Injury COMPARISON: None FINDINGS: Imaging of the elbow demonstrates epicon dylar enthesophyte formation with a remote avulsion versus intracapsular oss eous body over the lateral joint line. Marked medial and posterior subcut aneous fat stranding is seen with fullness at the olecranon bursa. Osteoph ytosis is seen about the elbow joint. Radial tuberosity enthesophyte fo rmation is present. Questionable posterior fat pad displacement is seen. IMPRESSION Marked soft tissue swelling with olecran on bursitis. Osteoarthrosis. Questionable joint effusion. If this pat ient has history of a fall, radial head/neck fracture cannot be reliably ex cluded. Performing Organization Address City/State/Zipcode Phone Number PACS/VR/DOSE documented in this encounter Visit Diagnoses Diagnosis Left elbow pain Pain in joint, upper arm documented in this encounter Insurance Payer Benefit Plan / Subscriber ID Effective Phone Address T ype Group Dates MEDICARE MEDICARE PART A xxxxxxxxxxx 2000-Pres [phone] [address] [place] [address] Medicare & B ent [id number] [place] [address] BCBS OF [facility] [id number] 2014-Pres [phone] [facility] ent [phone] [place] [address] documented as of this encounter
--- OUTSIDE RECORDS SUMMARY | 2020-06-06 06:58 | XMS REPORT | Summary of Care ---
:1935 Author Organization [facility] Address [address] [place] [address] Care Team Providers Name Role Phone Pcp, Does Not Have A Primary Care Provider Reason for Visit Reason Comments New Patient Elbow Pain left x 6 days 03/03 Encounter Details Date Type Department Care Team Description 05/03/2020 Office Visit [facility] Orthopaedic Juan Antonio Hutchins I nfected abrasion of Surgery- Horacio James MD left elbow, initial [address], [address] encounter (Primary Dx) [address] [place] [address] [place], [place] [phone] Allergies No Known Allergiesdocumented as of this encounter (statuses as of 05/10/2020) Medications Medication Sig Dispensed Refills Start Date [...] as of this encounter (statuses as of 05/10/2020) Active Problems Not on filedocumented as of this encounter (statuses as of 05/10/2020) Social History Tobacco Use Types Packs/Day Years [...] in this encounter Progress Notes Juan Antonio Htuchins MD - 05/03/2020 1:00 PM CDT Cc: Chief Complaint Patient presents with New Patient Elbow Pain left x 6 days 03/03 Dwayne Suárez is a 84 year old male. Elbow Pain This is a new problem. The current episode started in the past 7 days. The problem occurs daily. Theproblem has been gradually worsening. He has tried NSAIDs, rest, position changes, relaxation and immobilization for the symptoms. The treatment provided mild relief. Allergies Dwayne has No Known Allergies. Medications [...] file Gets together: Not on file Attends episcopalian service: Not on file Active member of [...] vitals taken for this visit. Physical Exam Musculoskeletal: Left elbow: He exhibits swelling and laceration. He exhibits normal range of motion. General: Well-developed well-nourished oriented to person place and time HEENT normocephalic atraumatic atraumatic pupils equal round reactive to light extraocular muscles intact Cervical thoracic and lumbar spine without focal deficit normal kyphosis and lordosis Chest clear to auscultation and percussion Cardiovascular regular rate and rhythm without gallop rub or murmur soft without organomegaly Normal bowel sounds Neurologic: Focal myotome or dermatomal deficits Vascular: Intact symmetrical bilateral upper and lower extremities Skin without stasis varicosities or breakdown Extremities without cyanosis clubbing or edema Lymphatics no peripheral lymphedema Psych normal mood and affect. Neurovascular function is intact. To include brisk capillary refill warm pink skin active motor function and sensory function intact. Nursing note and vitals reviewed. Assessment/Plan Infected abrasion of left elbow, initial encounter [S50.312A, L08.9] Will prescribe clindamycin. Follow up prn. documented in this encounter Plan of Treatment [...] NICKY X Medicare & B ent [id number] [place] [address] BCBS OF [place] [id number] 2014-Pres [phone] [facility] [employer] ent [phone] [place] [address] documented as of this encounter
[2020-06-06] MEDS ORDERED: NA CHLORIDE 0.9% 500 ML ONE (07:01)
[2020-06-06] MEDS ORDERED: NA CHLORIDE 0.9% 0 ML ONE (07:23)
[2020-06-06] MEDS ORDERED: MIDAZOLAM HCL 2 MG/2 ML INJ ONE (07:23)
[2020-06-06] MEDS ORDERED: ATROPINE SULF 1 MG/10 ML SYR IV ONE (07:23)
[2020-06-06] MEDS ORDERED: FENTANYL CITR 100 MCG/2 ML ONE (07:23)
[2020-06-06 08:33] VITALS: TEMP 97.9
[2020-06-06 09:48] VITALS: BP 158/73; O2SAT 95
== END 2020-06-06 10:20 | disposition home or self-care (01) ==
LOC: CCL 06:44
DX: I25.10 Atherosclerotic heart disease of native coronary artery without angina pectoris (principal); I25.82 Chronic total occlusion of coronary artery; I65.23 Occlusion and stenosis of bilateral carotid arteries; I10 Essential (primary) hypertension; R55 Syncope and collapse; E78.5 Hyperlipidemia, unspecified; E11.9 Type 2 diabetes mellitus without complications; R01.1 Cardiac murmur, unspecified; Z11.59 Encounter for screening for other viral diseases; Z87.891 Personal history of nicotine dependence
CPT/HCPCS: 85025; 80048; 36415; 85610; 82947; 85730; 93454; 36222; U0002; C1893; J2250; J3010; J7040; J1644; J0583

== ENCOUNTER 2021-04-24 09:43 | Day surgery (SDC) | payer OTHER, BC ==
[2021-04-20 11:10] LABS: Absolute Lymphocytes (CBC) 0.9 K/uL (0.7-4.9); Basophils % 0.6 % (0-1.3); MPV 8.6 fL (7.6-11.3); RBC Red Blood Cell Count 4.77 M/uL (4.33-5.43)
[2021-04-20 11:23] LABS: Potassium 4.5 mmol/L (3.5-5.1)
--- NOTE | 2021-04-20 11:26 | RAD REPORT ---
EXAM DESCRIPTION: RAD - Chest Pa And Lat (2 Views) - 04/20/2021 11:10 am CLINICAL HISTORY: preop Chest pain. COMPARISON: Chest Pa And Lat (2 Views) dated 04/26/2020 FINDINGS: The lungs are mildly emphysematous but clear. The heart is mildly prominent size with ster notomy wires present. No displaced fractures. IMPRESSION: Mild COPD.
--- NOTE | 2021-04-20 11:55 | EKG ---
Test Date: 2021-04-20 Test Time: 09:43:26 Case Managers: BREEZY MEASUREMENT RESULTS: Intervals: Rate: 75 TX: 210 QRSD: 126 QT: 380 QTc: 424 [place]: P: 74 TX: 210 QRS: -75 T: 71 INTERPRETIVE STATEMENTS: Sinus rhythm with 1st degree AV block Left axis deviation Right bundle branch block Possible Lateral infarct, age undetermined Inferior infarct, age undetermined Abnormal ECG No previous ECG available for comparison Electronically Signed On 04-20-21 11:53:55 CDT by Eric Cardoso
[2021-04-20 12:23] LABS: Protime INR 0.95
[2021-04-24] MEDS ORDERED: propofoL 200 MG/20 ML VIAL IV ONE (10:04)
[2021-04-24] MEDS ORDERED: LIDOCAINE 1% MPF 5 ML VIAL ONE (10:05)
[2021-04-24] MEDS ORDERED: FENTANYL CITR 100 MCG/2 ML ONE (10:05)
[2021-04-24] MEDS ORDERED: CEFAZOLIN/SWI 1gm 1 GM/10 ML SYR ONE ×2 (10:13→10:27)
[2021-04-24] MEDS ORDERED: NA CHLORIDE 0.9% 1,000 ML ONE (10:13)
[2021-04-24] MEDS ORDERED: GEMCITABINE HCL 26.3 ML IVPB ONE (10:30)
[2021-04-24] MEDS: LABETALOL 20 MG/4ML SYRINGE IV ONE ×3 (12:18→13:11)
[2021-04-24] MEDS ORDERED: OPIUM/BELLADONNA SUPPOS (30-16.2 MG) PR ONE (12:35)
[2021-04-24] MEDS ORDERED: PHENAZOPYRIDINE 100MG TAB PO ONE (12:47)
[2021-04-24] MEDS ORDERED: HYDROCODONE/APAP 5/325 MG TAB PO PRN (12:47)
[2021-04-24 13:16] VITALS: O2SAT 95
--- NOTE | 2021-04-24 13:46 | OP ---
Surgeon: WHIT SEYMOUR Preoperative Diagnosis: Bladder tumor. Postoperative Diagnosis: Bladder tumor. Principle Procedure: Cystoscopy, transurethral resection of a bladder tumor. Intravesical instillation of gemcitabine 2 g in 50 cc normal saline. Date of Procedure: 04/24/21 Indication For Procedure: Mr. Astorga presented to the Urology Clinic with gross hematuria and was evaluated and found to have multifocal bladder tumors occupying a patch in the posterior dome of his bladder approximately 5 cm in diameter. He underwent a CT urogram on 04/20/2021, which was unremarkable for any upper tract urothelial lesion and of note, did not note any visible bladder tumor either. There were no renal masses as well. Procedure In Detail: The patient was consented in the preoperative holding area before being transferred to the operative suite where general anesthesia was induced. He was given Ancef 2 g IV antimicrobial prophylaxis and pneumoboots were provided for DVT prophylaxis. The case was begun using a 22-Swazi rigid cystoscope to traverse the urethra and into the bladder with ease. This was done after urethral sounds were used to dilate the meatus and fossa navicularis to 28-Swazi. The bladder was surveyed in its entirety, and consistent with the outpatient cystoscopy, the patch of multifocal papillary tumors noted within the posterior dome of the bladder was again noted. There were no other lesions visible within the left and right lateral wall, the bladder neck region or in the anterior region of the dome. As a result, I employed cold cup biopsy forceps to extensively and ostensibly resect the entirety of each papillary urothelial tumor visible. Multiple, greater than 30 or 40 biopsies were taken from these locations. These were sent for pathologic analysis, and I then fulgurated the base of these lesions. Repeat cystoscopic assessment and any additional tumors visible were similarly removed until no papillary urothelial tumors were visible. 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 As a result, once all tumors had been removed and the base of each was fulgurated, I then used an Ellik to evacuate any circulating tumor particles from within his bladder. Of note, sterile water was used throughout the fulguration portion of the procedure where as normal saline was used during the resection component. I then placed an 18-Swazi [address] Patel catheter into his bladder with ease and placed 10 cc of sterile water in the balloon. I irrigated his bladder again, and decompressed it completely. I then instilled the 50 cc of gemcitabine 2 g into his bladder with ease, and the catheter was clamped and connected to a leg bag for ease of evacuation later. He was then taken out of the lithotomy position and the blue towels were tied around the catheter at the meatus as well as draped off the entirety of his genitalia in the event of a bladder spasm and spillage. He was then awakened from general anesthesia, transferred to a stretcher and then transferred to the recovery room in good condition. Complications: None. Discharge Disposition: He will be rotated by 1/4 turn every 15 minutes while in the recovery room to facilitate distribution of the chemotherapy throughout his bladder. After 1 hour of instillation, the chemotherapy will be evacuated from his bladder, and the catheter and chemotherapy solution within the leg bag would be discarded. He will then have a new 18-Swazi coude Patel catheter placed into his bladder and be discharged home with a catheter in place. He will remove the catheter himself at home tomorrow at 7 a.m. and notify my office if he is unable to void comfortably by 1 p.m. Subsequent followup should be established in my office in about 1-2 weeks time to discuss the pathology of the resection. BASSAM/BEN Voice ID: [id number] Report ID: [id number] RUSSELL
[2021-04-24] MEDS ORDERED: HYDROCODONE/APAP 5/325 MG TAB ONE (14:11)
[2021-04-24 15:02] VITALS: BP 158/85; TEMP 97.8
== END 2021-04-24 14:50 | disposition home or self-care (01) ==
LOC: OR 09:43
PROVIDERS: ATTEND Urology
PROC: 3E0K805 Introduction of Other Antineoplastic into Genitourinary Tract, Via Natural or Artificial Opening Endoscopic (ICD-10-PCS; 2021-04-24)
PROC: 0TBB8ZX Excision of Bladder, Via Natural or Artificial Opening Endoscopic, Diagnostic (ICD-10-PCS; principal; 2021-04-24 11:15)
DX: C67.1 Malignant neoplasm of dome of bladder (principal); Z20.822 Contact with and (suspected) exposure to COVID-19
CPT/HCPCS: 93005; 85025; 87086; 80048; 36415; 85610; 82947 ×2; 88307; 85730; 84153; 71046; 52235; 51720; U0003; J2704; J3010; J0690 ×2; J9201; J7030; 87088; 88305

== ENCOUNTER 2021-07-31 10:06 | Day surgery (SDC) | payer OTHER, BC ==
[2021-07-26 15:30] LABS: Absolute Lymphocytes (CBC) 1.2 K/uL (0.7-4.9); Basophils % 0.4 % (0-1.3); Hematocrit 39.7 % (39.6-49.0); Lymphocytes % 17.6 % (15.3-44.8); MPV 7.8 fL (7.6-11.3); RBC Red Blood Cell Count 4.48 M/uL (4.33-5.43)
[2021-07-26 15:53] LABS: Potassium 4.3 mmol/L (3.5-5.1)
--- NOTE | 2021-07-27 07:44 | EKG ---
Test Date: 2021-07-26 Test Time: 13:53:08 Title Search Manager: LAUREN MEASUREMENT RESULTS: Intervals: Rate: 95 NV: 236 QRSD: 128 QT: 350 QTc: 439 [place]: P: 78 NV: 236 QRS: -76 T: 74 INTERPRETIVE STATEMENTS: Sinus rhythm with 1st degree AV block Left axis deviation Right bundle branch block Left ventricular hypertrophy with repolarization abnormality Possible Lateral infarct, age undetermined Inferior infarct, age undetermined Abnormal ECG Compared to ECG 04/20/2021 09:43:26 Left ventricular hypertrophy now present Early repolarization now present Myocardial infarct finding still present Electronically Signed On 07-27-21 07:41:57 CDT by Eric Cardoso
[2021-07-31] MEDS ORDERED: propofoL 200 MG/20 ML VIAL IV ONE (11:52)
[2021-07-31] MEDS ORDERED: MIDAZOLAM HCL 2 MG/2 ML INJ ONE (11:53)
[2021-07-31] MEDS ORDERED: LIDOCAINE 1% MPF 5 ML VIAL ONE (11:53)
[2021-07-31] MEDS ORDERED: ONDANSETRON 4 MG/2 ML VIAL ONE (11:53)
[2021-07-31] MEDS ORDERED: FENTANYL CITR 100 MCG/2 ML ONE (11:53)
[2021-07-31] MEDS ORDERED: CODEINE 30MG/APAP 300MG TAB PO PRN (12:38)
[2021-07-31] MEDS ORDERED: PHENAZOPYRIDINE 100MG TAB PO ONE (12:38)
[2021-07-31 12:57] VITALS: TEMP 97.8
[2021-07-31 14:32] VITALS: BP 126/69; O2SAT 98
--- NOTE | 2021-07-31 16:25 | OP ---
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 Principle Procedures: Cystoscopy and bladder biopsies with fulguration. Indication For Procedure: Mr. Suárez is an 85-year-old gentleman with a very large, but only interm ediately invasive urothelial carcinoma of the bladder, status post TURBT followed by adjuvant inducti on BCG, here for followup, restaging, cystoscopy and bladder biopsies given the risk of occult detrus or muscle invasion of at least 35%. Procedure Note: The patient was consented in the preoperative holding area before being transferred to the operative suite where general anesthesia was induced. He was given Ancef 2 g IV antimicrobial prophylaxis. Pneumo boots were provided for DVT prophylaxis. He was placed in the lithotomy positi on, padded and secured to the table appropriately. His genitalia were prepped using Hibiclens and dr reyna in standard fashion. The case was begun using a 22-[place]izen [place] rigid cystoscope, but this was aborte d due to the degree of meatal stenosis. As a result, urethral sounds were used to dilate the meatus and fossa navicularis to 26-Citizen [place]. I was then able to navigate the 22-[place]izen [place] cystoscope via the ure thra and into the bladder with ease. The bladder was surveyed in its entirety, and there were no pap illary mucosal lesions, foreign bodies, or stones. There were no erythematous patches of suspicion. There was evidence of scars from prior resection of tumor within the right lateral wall and in the d ome. As a result, I took a cold cup biopsy forceps from each of those positions within the bladder, again the right lateral wall and the dome and sent these for pathologic analysis. At least 2 samples were taken from each position. I then fulgurated the base of each of these biopsy sites using a Bug bee electrode at a cautery setting of 30. I then decompressed his bladder and with no ongoing active oozing of blood, I then refilled his bladder and again surveyed for any missed mucosal lesions. Wit h none noted, I then left his bladder full and placed an 18-[place]izen [place] urethral Patel catheter with ease into his bladder with 10 cc of sterile water in the balloon. The catheter was connected to a leg bag and the patient was taken out of the lithotomy position. He was then awakened from general anesthes ia, transferred to a stretcher and then transferred to the recovery room in good condition. Complications: None. Discharge Disposition: He may remove the catheter himself tomorrow morning at 7 a.m. and as long as he is able to void by 1 or 2 p.m. in the afternoon, followup can simply be established in the next 2 to 3 weeks to discuss the results of the pathology. Subsequently, he will need maintenance BCG arran ged to occur 3 months following the completion of the induction course. This of course as long as no residual malignancy is seen. BASSAM/BEN Voice ID: [id number] Report ID: [id number]
== END 2021-07-31 13:50 | disposition home or self-care (01) ==
LOC: PRE 10:06
PROVIDERS: ATTEND Urology
PROC: 0TBB8ZX Excision of Bladder, Via Natural or Artificial Opening Endoscopic, Diagnostic (ICD-10-PCS; principal; 2021-07-31 11:15)
DX: C67.9 Malignant neoplasm of bladder, unspecified (principal); Z20.822 Contact with and (suspected) exposure to COVID-19
CPT/HCPCS: 93005; 87088; 85025; 87086; 80048; 36415; 82947 ×2; 88305; 52204; U0002; J2704; J3010; J2405; J2250

== ENCOUNTER 2021-11-27 06:33 | Day surgery (SDC) | payer OTHER, BC ==
[2021-11-22 14:08] LABS: Absolute Lymphocytes (CBC) 1.2 K/uL (0.7-4.9); Lymphocytes % 15.8 % (15.3-44.8); MPV 7.6 fL (7.6-11.3); RBC Red Blood Cell Count 4.91 M/uL (4.33-5.43)
[2021-11-22 14:26] LABS: Potassium 4.4 mmol/L (3.5-5.1)
--- NOTE | 2021-11-22 14:41 | RAD REPORT ---
EXAM DESCRIPTION: Alena Almendarez (2 Views)11/22/2021 2:23 pm CLINICAL HISTORY: Preop for genitourinary surgery COMPARISON: March 2021 FINDINGS: Postsurgical changes involve the chest The lungs appear clear of acute infiltrate. The heart is normal size IMPRESSION: No acute abnormalities displayed
[2021-11-27] MEDS ORDERED: NA CHLORIDE 0.9% 1,000 ML ONE ×2 (06:52→10:29)
[2021-11-27] MEDS ORDERED: CEFAZOLIN/SWI 2gm 2 GM/20 ML SYR ONE (06:52)
[2021-11-27] MEDS ORDERED: propofoL 200 MG/20 ML VIAL IV ONE (07:04)
[2021-11-27] MEDS ORDERED: FENTANYL CITR 100 MCG/2 ML ONE ×2 (07:04→08:20)
[2021-11-27] MEDS ORDERED: LIDOCAINE 1% MPF 5 ML VIAL ONE (07:04)
[2021-11-27] MEDS ORDERED: dexAMETHasone 10 MG/ML VIAL ONE (07:09)
[2021-11-27] MEDS ORDERED: OPIUM/BELLADONNA SUPPOS (30-16.2 MG) PR ONE ×2 (07:43→09:02)
[2021-11-27] MEDS ORDERED: CODEINE 30MG/APAP 300MG TAB PO PRN (07:43)
[2021-11-27] MEDS ORDERED: PHENAZOPYRIDINE 100MG TAB PO ONE ×3 (07:43→11:25)
[2021-11-27] MEDS ORDERED: GLYCOPYRROLATE 0.2 MG/ML SYR ONE (07:56)
[2021-11-27] MEDS ORDERED: EPHEDRINE SULF 50 MG/ML VIAL ONE (07:58)
[2021-11-27] MEDS ORDERED: ONDANSETRON 4 MG/2 ML VIAL ONE (09:39)
[2021-11-27] MEDS ORDERED: MEPERIDINE HCL 25 MG/ML SYR ONE (09:40)
[2021-11-27] MEDS: MORPHINE 4 MG/ML SYR ONE ×2 (09:40→09:50)
--- NOTE | 2021-11-27 09:40 | RAD REPORT ---
EXAM DESCRIPTION: RAD - Urethrocystogrphy Retrograde - 11/27/2021 9:30 am CLINICAL HISTORY: ICD N 20.0 FINDINGS: Twenty-five fluoroscopic spot images obtained. Fluoroscopy time 0.43 minutes Right and left ureters cannulated and contrast administered. Examination was performed by Dr Christopher
[2021-11-27 10:57] VITALS: BP 162/82
--- NOTE | 2021-11-27 11:24 | OP ---
Date of Procedure: 11/27/2021 Surgeon: WHIT SEYMOUR Preoperative Diagnoses: 1.History of pathologic T1 high-grade urothelial carcinoma. 2.Status post induction BCG on maintenance therapy. 3.Positive voided urinary genetic and cytologic testing. Postoperative Diagnoses: 1.History of pathologic T1 high-grade urothelial carcinoma. 2.Status post induction BCG on maintenance therapy. 3.Positive voided urinary genetic and cytologic testing. 4.Left mid pole renal filling defect. Procedures Performed: 1.Cystoscopy with bladder biopsies and fulguration. 2.Prostatic urethral biopsies. 3.Bilateral upper tract selective ureteral cytologies. 4.Bilateral retrograde pyelography. 5.Attempted left ureteroscopy. 6.Left ureteral stent placement. 7.Placement of urethral Patel catheter. 8.Instillation of intravesical gemcitabine 2 g in 50 cc normal saline. Indication For Procedure: Mr. Suárez is an 85-year-old gentleman who underwent resection of a large bladder tumor revealing pathologic stage T1 high-grade urothelial carcinoma. He had undergone succe ssful induction BCG with no sign of tumor recurrence and upper tract imaging done preoperatively was negative for upper tract filling defect. However, despite continuing with maintenance therapy per [place] CN and SWAG protocols, followup voided cytologic assessments and CX bladder monitor testing. Return suspicious for high-grade urothelial carcinoma. As a result, the patient was counseled on the need f or subsequent evaluation to identify the source of the malignancy. Procedure In Detail: The patient was consented in the preoperative holding area before being transfe rred to operative suite where general anesthesia was induced. He was given Ancef IV antimicrobial pr ophylaxis and pneumo boots were provided for DVT prophylaxis. He was placed in the lithotomy positio n, padded and secured to the table appropriately. His genitalia were prepped using Hibiclens and vinh ped in standard fashion. The case was then begun using a 22-Paraguayan rigid cystoscope to traverse the urethra and into the bladder. The bladder was surveyed in its entirety, and again, no papillary muco van lesions were noted throughout. In the region of the prior biopsy resection site at the borders. There was some mild erythema, but no papillary lesions were noted. I then proceeded to assess the b ilateral upper tracts. Left ureteral wash cytology: Using 10 cc of normal saline and a 5-Paraguayan ureteral access catheter, t he saline was injected into the left distal ureter and then fluid that effluxed was collected into a specimen container. This was sent for pathologic analysis as left ureteral wash cytology. I then pe rformed a retrograde pyelogram on the left side. Left retrograde pyelography: Using a 70:30 mixture of Omnipaque and saline, contrast was injected vi a the 5-Paraguayan ureteral access catheter and did progress up a nondilated ureter into a nondilated lef t renal pelvis. The upper pole calices in the lower pole calices did fill normally as did the renal pelvis; however, the mid pole calyx did not completely fill with contrast suggestive of the potential for a filling defect. As a result, I passed a Sensor wire into the upper pole where it was coiled f luoroscopically and I left it in place. I then turned my attention to the right ureteral orifice, wh ich was cannulated using a 5-Paraguayan ureteral access catheter. Right ureteral wash cytology: Using a 10 cc of normal saline, this was injected into the right upper tract and the effluxing of fluid and urine was collected and sent for pathologic analysis as right u pper tract ureteral wash cytology. I then again injected a 70:30 mixture of Omnipaque and saline up the 5-Paraguayan ureteral access catheter performing a right-sided retrograde pyelography study. On this side, there were no ureteral or renal filling defects, and each calyx of the kidney did fill normall y without evidence of filling defect. As a result, the 5-Paraguayan ureteral access catheter was removed from the right kidney. Of note, different 5-Paraguayan ureteral access catheters and different syringes of saline and contrast injection were used for each side to avoid cross contamination. I then turne d my attention back to the bladder where multiple biopsies were taken. Standard random biopsies were taken from the trigone, posterior dome as well as the left and right lateral hanley, but additional s amples within the region of the dome around the prior resection site were taken and sent for patholog ic analysis as well. An additional sample was taken posteriorly. These were all sent for pathologic analysis. I then turned my attention to the prostatic urethra. I removed the rigid cystoscope and dilated the meatus and fossa navicularis to 30-Paraguayan before inserting a 26-Paraguayan bipolar resectosco pe under direct vision. Once within the bladder, I decompressed the fluid and urine and then refille d it. Of note, the prior biopsy sites were all fulgurated using a Bugbee electrode at a cautery sett ing of 30, as well as sterile water. However, when switched to the bipolar prostatic urethral biopsi es, the fluid was normal saline. I then resected at the 5 and 7 o'clock positions of the prostatic u rethra, chips of the prostate in order to send those for pathologic analysis. I then carefully fulgu rated the base to ensure absence of bleeding. Once hemostatic, I then decompressed his bladder fluid and urine and removed the resectoscope. Over the indwelling safety wire placed on the left side, I then passed a dual-lumen catheter and confirmed appropriate intraluminal position using contrast mixt ure 70:30 of Omnipaque and saline. I then passed a Bentson guidewire via the second lumen of the ure teral access catheter and coiled it within the upper pole of the kidney alongside the indwelling safe ty wire. The dual-lumen catheter would not pass beyond the point of obstruction in the distal ureter ; so, I then removed it and attempted to pass a ureteral access catheter. It also would not pass bey ond the point of obstruction in the distal ureter. So, I left it in place and then passed within it the flexible ureteroscope, attempting to navigate it and assess the left upper tract filling defect. Unfortunately, there was an area of ureteral spasm/stenosis in the distal ureter, which would not al low passage of the flexible ureteroscope. Attempts to pass a Bentson guidewire via the ureteroscope to navigate it beyond this obstruction and using pressurized irrigation did not improve our ability t o gain access beyond the point of obstruction. As a result, further attempts at ureteroscopy were di scontinued. I then removed the ureteroscope and backloaded the cystoscope over the indwelling safety wire. I then passed a 6-Paraguayan by 26 cm JJ left ureteral stent with a coil observed fluoroscopicall y within the upper pole and 1 cystoscopically formed within his bladder. I then removed the cystosco pe and passed an 18-Paraguayan coude urethral Patel catheter into his bladder with ease. A 20 cc of ster ile water was placed in the balloon. The bladder was decompressed of fluid and urine, and then I ret rograde instilled the gemcitabine 2 g in 50 cc normal saline. The fluid was clamped with in his blad nancy and a leg bag was attached. The genitalia and the catheter and its back were draped off complete ly using green and blue towels to absorb in case he has a bladder spasm, and the patient was taken ou t of the lithotomy position. He was then awakened from general anesthesia, transferred to [facility] , and then transferred to the recovery room in good condition. Complications: None. Discharge Disposition: He will be given an opportunity to void today before discharge, but if he gross s not void adequately, an 18-Paraguayan coude-tipped urethral Patel catheter will be reinserted. He will then be discharged home with a catheter and may follow up potentially tomorrow or to have i t removed. Alternatively, he may be taught to remove the catheter himself at home. Subsequent follo wup should be established within the next 2-3 weeks to discuss the results of the pathology and deter mine next steps. Given the left upper tract filling defect noted, if no other abnormalities are foun d on the biopsies or the selective cytologies from the opposite side, the plan would be definitive as sessment with ureteroscopy on followup. BASSAM/BEN Voice ID: [id number] Report ID: [id number]
[2021-11-27 11:37] VITALS: TEMP 97.6; O2SAT 98
[2021-11-27] MEDS ORDERED: GEMCITABINE HCL 26.3 ML IVPB ONE (12:30)
== END 2021-11-27 11:31 | disposition home or self-care (01) ==
LOC: OR 06:33
PROVIDERS: ATTEND Urology
PROC: 0T9780Z Drainage of Left Ureter with Drainage Device, Via Natural or Artificial Opening Endoscopic (ICD-10-PCS; 2021-11-27)
PROC: 3E0K805 Introduction of Other Antineoplastic into Genitourinary Tract, Via Natural or Artificial Opening Endoscopic (ICD-10-PCS; 2021-11-27)
PROC: 0TBD8ZX Excision of Urethra, Via Natural or Artificial Opening Endoscopic, Diagnostic (ICD-10-PCS; 2021-11-27)
PROC: 0TBB8ZX Excision of Bladder, Via Natural or Artificial Opening Endoscopic, Diagnostic (ICD-10-PCS; principal; 2021-11-27 07:30)
DX: C68.9 Malignant neoplasm of urinary organ, unspecified (principal); R82.89 Other abnormal findings on cytological and histological examination of urine; Z20.822 Contact with and (suspected) exposure to COVID-19
CPT/HCPCS: 87088; 85025; 87086; 80048; 36415; 88108; 82947; 88305; 71046; 74450; 51610; 52204; 52332; 51720; U0002; J2704; J3010 ×2; J0690; J9201; J7030 ×2; J2405; J1100; J2175

== ENCOUNTER 2021-12-25 09:25 | Day surgery (SDC) | payer OTHER, BC ==
[2021-12-25] MEDS ORDERED: NA CHLORIDE 0.9% 1,000 ML ONE (09:34)
[2021-12-25] MEDS ORDERED: CEFAZOLIN/SWI 2gm 2 GM/20 ML SYR ONE (09:34)
[2021-12-25] MEDS ORDERED: propofoL 200 MG/20 ML VIAL IV ONE (10:27)
[2021-12-25] MEDS ORDERED: ONDANSETRON 4 MG/2 ML VIAL ONE (10:28)
[2021-12-25] MEDS ORDERED: FENTANYL CITR 100 MCG/2 ML ONE (10:28)
[2021-12-25] MEDS ORDERED: LIDOCAINE 1% MPF 5 ML VIAL ONE (10:29)
[2021-12-25] MEDS ORDERED: Mastisol Adhesive Liq ONE (11:31)
--- NOTE | 2021-12-25 11:51 | RAD REPORT ---
EXAM DESCRIPTION: RAD - Urethrocystogrphy Retrograde - 12/25/2021 11:41 am CLINICAL HISTORY: LEFT URETEROSCOPY COMPARISON: Urethrocystogrphy Retrograde dated 11/27/2021 FINDINGS/IMPRESSION: Multiple intraoperative fluoroscopic images were submitted showing cannulation of the left ureter, contrast injection, and ultimately placement of a left-sided ureteral stent. Fluoro time: 24 seconds
[2021-12-25 12:14] VITALS: O2SAT 96
[2021-12-25 12:26] VITALS: TEMP 97.4
--- NOTE | 2021-12-25 12:52 | OP ---
Surgeon: WHIT SEYMOUR Preoperative Diagnoses: 1.Left renal filling defect. 2.History of urothelial carcinoma of the bladder, status post BCG. Postoperative Diagnoses: 1.Left renal filling defect. 2.History of urothelial carcinoma of the bladder, status post BCG. Principle Procedures: 1.Left retrograde pyelogram. 2.Left ureteroscopy. 3.Left ureteral stent exchange. Indication For Procedure: Mr. Suárez presented for operative evaluation via bladder biopsies and pr ostatic urethral biopsies following an atypical cytology seen. The biopsies all returned benign, but during the process of that evaluation, he underwent upper tract retrograde pyelogram and there was a filling defect in the left mid pole region. Ureteroscopy was aborted on the last attempt in the uns tented ureter; so a left ureteral stent was placed. He returns today for definitive management of th at filling defect. Procedure In Detail: The patient was consented in the preoperative holding area before being transfe rred to operative suite where general anesthesia was induced. He was given Ancef antimicrobial proph ylaxis and pneumo boots were provided for DVT prophylaxis. He was placed in the lithotomy position, padded and secured to the table appropriately. His genitalia were prepped using Hibiclens and he was draped in standard fashion. The case was begun using a 22-Arabic rigid cystoscope to traverse the u rethra and into the bladder with ease. An alligator grasper was placed via the cystoscope after the bladder was decompressed of fluid and urine. The stent was then grasped and the tip of the stent was delivered via the meatus. The proximal end of the stent remained within the mid distal ureter. Quinten delatorre was able to pass a Sensor wire via the indwelling stent until it coiled in the putative upper lu e of the left kidney. I then passed a dual-lumen catheter over the wire after removing the stent. Left retrograde pyelography: Using a 70:30 mixture of Omnipaque and saline, contrast was injected via the second lumen of the dual -lumen catheter and did propagate up a nondilated distal into the mid and proximal ureter before ente ring the renal pelvis. The upper and lower pole calices delineated quickly and easily and the mid po le calyx at time did delineate indicating a very narrow infundibulum. Contrast did, however, delinea te the mid pole on this occasion. As a result, I placed a MobilePeak guidewire via the second lumen of the dual-lumen catheter and passed the flexible digital ureteroscope over the wire into the upper lu e of the kidney. Pressurized sterile water irrigation was then used to visualize each of the calices of the kidney documented fluoroscopically along the way. The upper pole was free of mucosal lesion, foreign body or tumor/stone, as was the lower pole calices which were easily visualized. I then stef igated into the mid pole calyx identified after performing an antegrade pyelogram via the ureteroscop e. Once past the narrow infundibulum of which there were no obstructing mucosal lesions noted, I was able to survey each of the calices within the mid pole, and there were no mucosal lesions noted ther e as well. As a result, I backed the ureteroscope into the renal pelvis, which was surveyed in its e ntirety, and when no mucosal lesions were noted, I backed down into the proximal, the mid and into th e distal ureter. Only in the midportion of the ureter was there evidence of possible development of some strictured narrowing, but this was incomplete. The remainder of the ureter was free of mucosal lesion, foreign body or stone, so ureteroscopy was completed. I then back-loaded the cystoscope over the indwelling safety wire and passed a 6-Arabic by 26 cm double-J left ureteral stent left tethered to a string. A coil was observed fluoroscopically in the upper pole, and 1 cystoscopically was form ed in the bladder. I then decompressed his bladder of fluid and urine, and removed the cystoscope. The string emanated from the meatus and was tethered to the glans penis using Mastisol and Steri-Stri ps. The patient was then taken out of the lithotomy position, awakened from general anesthesia, best sferred to a stretcher and then transferred to the recovery room in good condition. Complications: None. Discharge Disposition: Since no upper tract filling defect was noted or mucosal lesion to explain th e atypical cytology seen, and since the biopsies of the bladder and the prostatic urethra were all be nign, a subsequent followup management will be dictated toward continuing maintenance BCG with followup cystoscopy to be performed in about 3 months. BASSAM/FRANKIEL Voice ID: [id number] Report ID: [id number]
[2021-12-25 13:42] VITALS: BP 152/73
== END 2021-12-25 13:33 | disposition home or self-care (01) ==
LOC: OR 09:25
PROVIDERS: ATTEND Urology
PROC: 0T778DZ Dilation of Left Ureter with Intraluminal Device, Via Natural or Artificial Opening Endoscopic (ICD-10-PCS; principal; 2021-12-25 11:00)
DX: R93.41 Abnormal radiologic findings on diagnostic imaging of renal pelvis, ureter, or bladder (principal); C68.9 Malignant neoplasm of urinary organ, unspecified; Z20.822 Contact with and (suspected) exposure to COVID-19
CPT/HCPCS: 82947; 74450; 51610; 52332; 52351; U0003; J2704; J3010; J0690; J7030; J2405

== ENCOUNTER 2023-12-12 06:25 | Day surgery (SDC) | payer OTHER, BC ==
[2023-12-12] MEDS ORDERED: NA CHLORIDE 0.9% 1,000 ML ONE (07:05)
[2023-12-12] MEDS ORDERED: CEFAZOLIN SODIUM 2 GM/VIAL ONE (07:06)
[2023-12-12 07:32] LABS: Absolute Lymphocytes (CBC) 0.8 K/uL (0.7-4.9); Hematocrit 40.1 % (39.6-49.0); Lymphocytes % 12.6 % (15.3-44.8); MCV 89.6 fL (80-100); MPV 7.6 fL (7.6-11.3); Platelets 259 thou/uL (152-406); RBC Red Blood Cell Count 4.47 M/uL (4.33-5.43)
--- NOTE | 2023-12-12 07:40 | RAD REPORT ---
EXAM DESCRIPTION: Alena Single View12/12/2023 7:14 am CLINICAL HISTORY: Preop COMPARISON: 2020 FINDINGS: The lungs appear clear of acute infiltrate. The heart is mildly enlarged. Postsurgical ch anges involve the chest IMPRESSION: No acute abnormalities displayed
[2023-12-12 07:46] LABS: Potassium 3.8 mEq/L (3.5-5.1)
[2023-12-12] MEDS ORDERED: LIDOCAINE 2% MPF 5 ML VIAL ONE (08:55)
[2023-12-12] MEDS ORDERED: FENTANYL CITR 100 MCG/2 ML ONE (08:55)
[2023-12-12] MEDS ORDERED: propofoL 200 MG/20 ML VIAL IV ONE (08:55)
[2023-12-12] MEDS ORDERED: ONDANSETRON 4 MG/2 ML VIAL ONE (08:55)
[2023-12-12] MEDS ORDERED: HYDROCODONE/APAP 5/325 MG TAB PO PRN (09:58)
--- NOTE | 2023-12-12 10:16 | P.OP ---
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 MAC anesthesia begun. Patient prepped and draped in the usual sterile fashion. Marcaine 0.5% infiltrated in the field block fashion around this 1.5 cm raised scaly mass on the left forearm. Entire mass excised and sent to pathology for frozen section. Frozen section revealed skin cancer with negative margins. Wound irrigated and bleeding controlled cautery. Flaps created. 3-0 chromic used to reapproximate subcutaneous tissue. 5-0 nylon used to close skin. Sterile dressing applied. Patient awakened and taken to recovery room in good general condition. CC:
[2023-12-12 14:07] VITALS: BP 151/92; TEMP 97; O2SAT 97
--- NOTE | 2023-12-15 17:03 | EKG ---
Test Date: 2023-12-12 Test Time: 08:24:46 Weigher And Charger: LEA MEASUREMENT RESULTS: Intervals: Rate: 87 UT: 218 QRSD: 144 QT: 382 QTc: 459 [place]: P: 78 UT: 218 QRS: -61 T: 84 INTERPRETIVE STATEMENTS: Sinus rhythm with 1st degree AV block with blocked premature atrial complexes Left axis deviation Right bundle branch block Left ventricular hypertrophy with repolarization abnormality Inferior infarct, age undetermined Abnormal ECG Compared to ECG 07/26/2021 13:53:08 Atrial premature complex(es) now present Myocardial infarct finding still present Electronically Signed On 12-15-23 16:54:46 HEAD BELLHOP CAPTAIN by Darin Hale
== END 2023-12-12 11:35 | disposition home or self-care (01) ==
LOC: OR 06:25
PROVIDERS: ATTEND Surgery
PROC: 0JBH0ZZ Excision of Left Lower Arm Subcutaneous Tissue and Fascia, Open Approach (ICD-10-PCS; principal; 2023-12-12 09:15)
DX: L57.0 Actinic keratosis (principal); D22.62 Melanocytic nevi of left upper limb, including shoulder
CPT/HCPCS: 93005; 85025; 80048; 36415; 82947 ×2; 88331; 88332; 88305; 71045; 11406; J2704; J2001; J3010; J2405; J7030

== ENCOUNTER 2024-03-02 06:50 | Day surgery (SDC) | payer OTHER, BC ==
[2024-02-26 15:35] LABS: Absolute Eosinophils 0.2 K/uL (0-0.5); Absolute Lymphocytes (CBC) 0.7 K/uL (0.7-4.9); Absolute Monocytes 0.6 K/uL (0.1-1.3); Absolute Neutrophil 5.4 K/uL (1.8-8.0); Basophils % 0.6 % (0-1.3); Eosinophils % 2.7 % (0-4.4); Hematocrit 41.1 % (39.6-49.0); Hemoglobin 13.6 g/dL (13.6-17.9); Lymphocytes % 10.6 % (15.3-44.8); MCH 29.7 pg (27.0-35.0); MCHC 33.1 g/dL (32.0-36.0); MCV 89.5 fL (80-100); MPV 7.5 fL (7.6-11.3); Monocytes % 8.1 % (3.3-12.3); Nucleated Red Blood Cells % 0.1 % (0-0); Platelets 234 thou/uL (152-406); RBC Red Blood Cell Count 4.59 M/uL (4.33-5.43); Red Cell Distribution Width 13.5 % (12.1-15.2)
[2024-02-26 15:37] LABS: PT Prothrombin Time 11.2 SECONDS (9.5-12.5); PTT, Activated Partial Thromb 27.9 SECONDS (24.3-36.9); Protime INR 1.02
[2024-02-26 15:41] LABS: Anion Gap 7.5 mEq/L (5.0-15.0); Potassium 4.5 mEq/L (3.5-5.1)
--- NOTE | 2024-02-27 11:55 | EKG ---
Test Date: 2024-02-26 Test Time: 15:10:13 Medical Scientific Officer: BREEZY MEASUREMENT RESULTS: Intervals: Rate: 85 [place]: 240 QRSD: 152 QT: 400 QTc: 476 [place]: P: 76 [place]: 240 QRS: -72 T: 94 INTERPRETIVE STATEMENTS: Sinus rhythm with 1st degree AV block Right bundle branch block Left anterior fascicular block Bifascicular block Left ventricular hypertrophy with repolarization abnormality Possible Lateral infarct, age undetermined Cannot rule out Inferior infarct (masked by fascicular block?), age undetermined Abnormal ECG Compared to ECG 12/12/2023 08:24:46 Left anterior fascicular block now present Bifascicular block now present Atrial premature complex(es) no longer present Left-axis deviation no longer present Myocardial infarct finding still present Electronically Signed On 02-27-24 11:53:28 CDT by Darin Hale
[2024-03-02] MEDS ORDERED: NA CHLORIDE 0.9% 500 ML ONE (06:53)
[2024-03-02] MEDS ORDERED: LIDOCAINE 1% 20 ML MDV ONE (06:56)
[2024-03-02] MEDS ORDERED: MIDAZOLAM HCL 2 MG/2 ML INJ ONE (06:56)
[2024-03-02] MEDS ORDERED: HEPA 1000U/500MLS 2,000 UNIT/1,000 ML BAG IV ONE (06:56)
[2024-03-02] MEDS ORDERED: FENTANYL CITR 100 MCG/2 ML ONE (06:56)
[2024-03-02] MEDS ORDERED: ATROPINE SULF 1 MG/10 ML SYR IV ONE (06:57)
[2024-03-02] MEDS ORDERED: HEPARIN 10,000 UNIT/10 ML VIAL IV ONE (06:57)
--- NOTE | 2024-03-02 08:45 | OP ---
Date of Procedure: 03/02/2024 Surgeon: CHRISTA ESPINOSA Procedures Performed: 1.Selective coronary angiogram with bypass graft study. 2.Left heart catheterization. Indication: Abnormal stress test with chest pain. Access: Right femoral artery 6-Belizean, closed with 6-Belizean Angio-Seal. Complications: None. Bleeding: Less than 50 mL. Anesthesia: Total sedation time was 50 minutes. Description Of Procedure: After risks, benefits, and alternatives were explained, the patient agreed to procedure and signed informed consent. The patient was brought into cardiac catheterization [facility], prepped and draped in usual sterile fashion. Then, I accessed right common femoral artery us ing micropuncture kit, ultrasound guidance, fluoroscopy, placed a 6-Belizean [place] sheath and took a 6-Belizean JL4 catheter into the aortic root over a J-wire, engaged left main, took standard views, an d exchanged for 6-Belizean JR4 catheter across aortic valve over the wire, measured the LVEDP. Pullbac k did not record any gradient and engaged RCA, took standard views, engaged the SVG to RCA and SVG to LAD and SVG to OM, and took standard views and removed the catheter and the sheath. A 6-Belizean [place] o-Seal was used for closure with good hemostasis. Findings: 1.Left main is ostial 30% to 40% and then the LAD diffuse 80% to 90% stenosis in the proximal and mi d segment and then there is a segment free of disease and then after the connection of the SVG graft, is a long 80% stenosis. 2.Left circumflex appears to be normal, but the OM1 branch is very small and ACT of 100%. 3.RCA; large dominant, proximal to mid 80% and PDA has 90%. Graft Study: 1.Patent SVG to LAD. 2.Patent SVG to RCA. 3.Occluded SVG to OM1. 4.Elevated LVEDP at 23 mmHg. Conclusions: 1.Severe [place] coronary artery disease with patent SVG graft to LAD and SVG graft to RCA and occlud ed SVG graft to OM, but it is very small vessel. 2.Elevated LVEDP. Recommendation: Medical management. SR/MODL Voice ID: [id number] Report ID: [id number]
[2024-03-02 10:27] VITALS: BP 146/82; O2SAT 95
== END 2024-03-02 10:08 | disposition home or self-care (01) ==
LOC: CCL 06:50
PROVIDERS: ATTEND Internal Medicine
DX: I25.10 Atherosclerotic heart disease of native coronary artery without angina pectoris (principal); I25.810 Atherosclerosis of coronary artery bypass graft(s) without angina pectoris; I25.82 Chronic total occlusion of coronary artery; I65.23 Occlusion and stenosis of bilateral carotid arteries; I11.0 Hypertensive heart disease with heart failure; I50.32 Chronic diastolic (congestive) heart failure; I45.2 Bifascicular block; R01.1 Cardiac murmur, unspecified; E78.5 Hyperlipidemia, unspecified; E11.9 Type 2 diabetes mellitus without complications; Z95.1 Presence of aortocoronary bypass graft; Z87.891 Personal history of nicotine dependence; Z79.82 Long term (current) use of aspirin; Z79.84 Long term (current) use of oral hypoglycemic drugs; Z79.899 Other long term (current) drug therapy
CPT/HCPCS: 93005; 85025; 80048; 36415; 85610; 82947; 85730; 93459; 76937; C1893; C1760; Q9967; G0269; J2001; J2250; J3010; J7040; 93458; 99152; 99153; J0461

== ENCOUNTER 2025-02-07 06:55 | Day surgery (SDC) | payer OTHER, BC ==
[2025-02-03 10:44] LABS: Absolute Eosinophils 0.2 K/uL (0-0.5); Absolute Lymphocytes (CBC) 0.6 K/uL (0.7-4.9); Absolute Monocytes 0.7 K/uL (0.1-1.3); Absolute Neutrophil 5.6 K/uL (1.8-8.0); Basophils % 0.4 % (0-1.3); Eosinophils % 3.3 % (0-4.4); Hematocrit 40.6 % (39.6-49.0); Hemoglobin 13.7 g/dL (13.6-17.9); Lymphocytes % 8.5 % (15.3-44.8); MCH 29.7 pg (27.0-35.0); MCHC 33.7 g/dL (32.0-36.0); MCV 88.1 fL (80-100); MPV 8.6 fL (7.6-11.3); Monocytes % 9.5 % (3.3-12.3); Neutrophils % 78.3 % (41.7-73.7); Platelets 210 thou/uL (152-406); RBC Red Blood Cell Count 4.61 M/uL (4.33-5.43); Red Cell Distribution Width 13.4 % (12.1-15.2)
[2025-02-03 10:57] LABS: Anion Gap 8.3 mEq/L (5.0-15.0); Potassium 4.3 mEq/L (3.5-5.1)
[2025-02-03 11:03] LABS: PT Prothrombin Time 11.8 SECONDS (10-13.0); PTT, Activated Partial Thromb 27.7 SECONDS (27.2-37.4); Protime INR 1.04
--- NOTE | 2025-02-03 12:59 | RAD REPORT ---
EXAMINATION: TWO VIEW CHEST XR CLINICAL INDICATION: Male, 89 years old. [facility] Pre-op pending carotid angiogram TECHNIQUE: 2 view radiographs of the chest were performed. COMPARISON: 12/12/2023 FINDINGS: The lungs are well inflated and clear. No pneumothorax or sizable effusion. The heart is normal in si ze. Mediastinal contours are unchanged with sequelae of median sternotomy. IMPRESSION: No acute or significant abnormalities.
--- NOTE | 2025-02-04 14:41 | EKG ---
Test Date: 2025-02-03 Test Time: 09:41:49 Peer Educator: LINDSEY MEASUREMENT RESULTS: Intervals: Rate: 70 [place]: 200 QRSD: 142 QT: 406 QTc: 438 [place]: P: ND: 200 QRS: -66 T: 90 INTERPRETIVE STATEMENTS: Normal sinus rhythm Left axis deviation Right bundle branch block Left ventricular hypertrophy with repolarization abnormality Inferior infarct, age undetermined Anterior infarct, age undetermined Abnormal ECG Compared to ECG 02/26/2024 15:10:13 Left-axis deviation now present First degree AV block no longer present Left anterior fascicular block no longer present Bifascicular block no longer present Myocardial infarct finding still present Electronically Signed On 02-04-25 14:40:08 CDT by Bryan Sandoval
[2025-02-07] MEDS ORDERED: HEPARIN 10,000 UNIT/10 ML VIAL IV ONE (07:37)
[2025-02-07] MEDS ORDERED: HEPA 1000U/500MLS 2,000 UNIT/1,000 ML BAG IV ONE (07:37)
[2025-02-07] MEDS ORDERED: MIDAZOLAM HCL 2 MG/2 ML INJ ONE (07:37)
[2025-02-07] MEDS ORDERED: NITROGLYCERIN/D5W 50 MG/250 ML BTL IV ONE (07:37)
[2025-02-07] MEDS ORDERED: ATROPINE SULF 1 MG/10 ML SYR IV ONE (07:38)
[2025-02-07] MEDS ORDERED: TICAGRELOR 90 MG TABLET PO ONE (07:38)
[2025-02-07] MEDS ORDERED: FENTANYL CITR 100 MCG/2 ML ONE (07:38)
[2025-02-07] MEDS ORDERED: ASPIRIN 325 MG TAB ONE (07:38)
[2025-02-07] MEDS ORDERED: CLOPIDOGREL 75 MG TABLET ONE (07:38)
[2025-02-07] MEDS ORDERED: LIDOCAINE 1% 20 ML MDV ONE (07:41)
[2025-02-07 08:17] VITALS: TEMP 978
[2025-02-07] MEDS: NA CHLORIDE 0.9% 500 ML ONE (08:50)
[2025-02-07] MEDS: HYDRALAZINE HCL 20 MG/ML VIAL ONE (11:05)
--- NOTE | 2025-02-07 11:33 | OP ---
Date of Procedure: 02/07/2025 Surgeon: Bryan Sandoval Procedure Performed: Bilateral carotid angiograms. Indication For Procedure: Carotid artery disease. Complications: None. Estimated Blood Loss: Less than 50 cc. Access: Right common femoral artery, closed by Mynx. Sedation Time: 20 minutes with 1 of Versed and 50 of fentanyl. Description Of Procedure: After risks, benefits, and alternatives were explained to the patient, the patient agreed to proceed with procedure and signed informed consent. The patient was brought back to the dock or pier laborer, prepped and draped in a sterile fashion. Time-out was performed. Sedation was admi nistered. Next, the right common femoral artery access was obtained using ultrasound-guided micropun cture technique. Rueda 1 catheter was advanced to the aortic root. Selective angiogram was done of t he right and left internal carotid arteries with that catheter. At the end of procedure, catheter wa s removed over a J-wire. Sheath was removed. Mynx was applied. Hemostasis achieved. The patient w as moved back to recovery in stable condition. Findings: 1. Right common carotid artery/internal carotid artery/external carotid artery are patent. 2. Left common carotid artery is patent. 3. Left internal carotid artery with a proximal calcified 70% disease, then mild luminal irregulariti es. 4. Left external carotid artery, mild luminal irregularities. Assessment And Plan: 1. Significant left internal carotid artery disease. 2. Patent right internal carotid artery endarterectomy. Plan is to refer to CT Surgery for evaluation of left carotid endarterectomy versus stenting. VICTORIA/BEN Voice ID: [id number] Report ID: [id number]
[2025-02-07 14:19] VITALS: BP 141/65; O2SAT 98
== END 2025-02-07 11:35 | disposition home or self-care (01) ==
LOC: CCL 06:55
PROVIDERS: ADMIT Internal Medicine; ATTEND Internal Medicine Interventional Cardiology
DX: I65.22 Occlusion and stenosis of left carotid artery (principal); I25.10 Atherosclerotic heart disease of native coronary artery without angina pectoris; I13.0 Hypertensive heart and chronic kidney disease with heart failure and stage 1 through stage 4 chronic kidney disease, or unspecified chronic kidney disease; I50.32 Chronic diastolic (congestive) heart failure; N18.30 Chronic kidney disease, stage 3 unspecified; E11.22 Type 2 diabetes mellitus with diabetic chronic kidney disease; E78.5 Hyperlipidemia, unspecified; Z95.1 Presence of aortocoronary bypass graft; Z87.891 Personal history of nicotine dependence; Z79.82 Long term (current) use of aspirin; Z79.84 Long term (current) use of oral hypoglycemic drugs; Z79.899 Other long term (current) drug therapy
CPT/HCPCS: 93005; 85025; 80048; 36415; 85610; 82947; 85730; 71046; 36222; 76937; C1893; C1769; J0360; J2003; J2250; J3010; J7040; C1760; 99152; J0461